=== PATIENT | female | born 1990 | race Two or more races ===

== ENCOUNTER 2024-05-01 07:56 | Inpatient (IN) | payer MEDICAID, OTHER ==
[~2024-05-01] VITALS: Ht 154.9 cm; Wt 139.0 kg
--- NOTE | 2024-05-01 08:32 | ED.PDOC ---
History of Present Illness HPI Comments 33-year-old female presents with a chief complaint of cough x 4 days with associated chest congestion. Patient states that she has chest congestion for the past x 4 days and has been coughing a lot. Patient mentions that she has been taking Robitussin, but has not had any relief of symptoms. Patient mentions that her son was sick and then she now has similar symptoms. No other symptoms or modifying factors present at this time. Chief Complaint: Cough Time Seen by MD: 08:27 Primary Care Provider: CHRISTIANO Tejada Notes: Medications, Allergies Allergies: Coded Allergies: NO KNOWN ALLERGIES (Unverified , 05/01/24) Information Source: Patient Mode of Arrival: Ambulatory Severity: Moderate Timing: Days Duration: Since onset Prehospital treatment: None Past Medical History PAST MEDICAL HISTORY: CHF, Gallstones, High Lipids, HTN Surgical History: PRINCIPAL CONSULTANT History: No Pertinent PRINCIPAL CONSULTANT History Family History Family History: Family hx of DM, Family hx of heart minerva, Family hx of HTN Social History Smoker: Non-Smoker Alcohol: Denies ETOH Use Drugs: Denies Drug Use Lives In: Home Constitutional: denies: chills, diaphoresis, fatigue, fever, malaise, sweats, weakness, others EENTM: reports: nose congestion; denies: blurred vision, double vision, ear bleeding, ear discharge, ear drainage, ear pain, ear ringing, eye pain, eye redness, hearing loss, mouth pain, mouth swelling, nasal discharge, nose bleeding, nose pain, photophobia, tearing, throat pain, throat swelling, voice changes, others Respiratory: reports: cough; denies: hemoptysis, orthopnea, SOB at rest, shortness of breath, SOB with excertion, stridor, wheezing, others Cardiovascular: denies: chest pain, dizzy spells, diaphoresis, Dyspnea on exertion, edema, irregular heart beat, left arm pain, lightheadedness, palpitations, PND, syncope, others Gastrointestinal: denies: abdomen distended, abdominal pain, blood streaked bowels, constipated, diarrhea, dysphagia, difficulty swallowing, hematemesis, melena, nausea, poor appetite, poor fluid intake, rectal bleeding, rectal pain, vomiting, others Genitourinary: denies: abnormal vagina bleeding, burning, dyspareunia, dysuria, flank pain, frequency, hematuria, incontinence, pain, , vagina discharge, urgency, others Neurological: denies: dizziness, fainting, headache, left sided numbness, left sided weakness, numbness, paresthesia, pre-existing deficit, right sided numbness, right sided weakness, seizure, speech problems, tingling, tremors, weakness, others Musculoskeletal: denies: back pain, gout, joint pain, joint swelling, muscle pa in, muscle stiffness, neck pain, others Integumetry: denies: bruises, change in color, change in hair/nails, dryness, laceration, lesions, lumps, rash, wounds, others Allergic/Immunocompromised: denies: Difficulty Healing, Frequent Infections, Hives, Itching, others Hematologic/Lymphatic: denies: anemia, blood clots, easy bleeding, easy bruising, swollen glands, others Endocrine: denies: excessive hunger, excessive sweating, excessive thirst, excessive urination, flushing, intolerance to cold, intolerance to heat, unexplained weight gain, unexplained weight loss, others Psychiatric: denies: anxiety, bipolar disorder, depression, hopeless, panic disorder, schizophrenia, sleepless, suicidal, others All Other Systems: Reviewed and Negative Physical Exam General Appearance: No Apparent Distress, Normal HEENT: Normal ENT Inspection, Pharynx Normal, TMs Normal Neck: Full Range of Motion, Non-Tender, Normal, Normal Inspection Respiratory: Chest Non-Tender, Lungs Clear, No Accessory Muscle Use, No Respiratory Distress, Normal Breath Sounds Cardiovascular: No Edema, No JVD, No Murmur, No Gallop, Normal Peripheral Pulses, Regular Rate/Rhythm Breast Exam: Deferred Gastrointestinal: No Organomegaly, Non Tender, No Pulsatile Mass, Normal Bowel Sounds, Soft Genitalia: Deferred Pelvic: Deferred Rectal: Deferred Extremities: No calf tenderness, Normal capillary refill, Normal inspection, Normal range of motion, Non-tender, No pedal edema Musculoskeletal : Apperance: Normal Neurologic: Alert, hedge fund manager II-XII nml as Tested, No Motor Deficits, Normal Affect, Normal Mood, No Sensory Deficits Cerebellar Function: Normal Reflexes: Normal Skin: Dry, Normal Color, Warm Lymphatic: No Adenopathy Was a procedure done? Was a procedure done?: No Differential Dx Considerations may include: Hypertensive emergency, acute CHF exacerbation, pneumonia, viral syndrome X-Ray, Labs, Meds, VS Vital Signs Date Time Temp Pulse Resp B/P (MAP) Pulse Ox O2 Delivery O2 Flow Rate FiO2 05/01/24 11:18 80 20 98 Nasal Cannula* 2 28 05/01/24 11:07 98.2 84 22 198/103 (134) 90 98.2 05/01/24 09:34 84 05/01/24 08:14 98.2 104 18 236/120 (158) 92 Lab Test 05/01/24 10:23 05/01/24 09:30 Range/Units Troponin I High Sensitivity 29 31 </=34 ng/L White Blood Count 10.4 4.4-10.8 10^3/uL Red Blood Count 4.22 4.0-5.20 10^6/uL Hemoglobin 10.8 L 12.2-16.2 g/dL Hematocrit 33.0 L 36.0-46.0 % Mean Corpuscular Volume 78.3 L 80.0-100.0 fL Mean Corpuscular Hemoglobin 25.5 L 28.0-32.0 pg Mean Corpuscular Hemoglobin Concent 32.6 32.0-36.0 g/dL Red Cell Distribution Width 19.4 H 11.8-14.3 % Platelet Count 252 140-450 10^3/uL Mean Platelet Volume 7.6 6.9-10.8 fL Neutrophils (%) (Auto) 77.0 37.0-80.0 % Lymphocytes (%) (Auto) 12.1 10.0-50.0 % Monocytes (%) (Auto) 6.2 0.0-12.0 % Eosinophils (%) (Auto) 3.7 0.0-7.0 % Basophils (%) (Auto) 1.0 0.0-2.0 % Neutrophils # (Auto) 8.0 1.6-8.6 10 ^3/uL Lymphocytes # (Auto) 1.3 0.4-5.4 10 ^3/uL Monocytes # (Auto) 0.6 0-1.3 10 ^3/uL Eosinophils # (Auto) 0.4 0-0.8 10 ^3/uL Basophils # (Auto) 0.1 0-0.2 10 ^3/uL Nucleated Red Blood Cells 0.1 % Sodium Level 138 136-145 mmol/L Potassium Level 3.7 3.5-5.1 mmol/L Chloride Level 104 98-107 mmol/L Carbon Dioxide Level 28 20-31 mmol/L Anion Gap 6 5-15 Blood Urea Nitrogen 18 9-23 mg/dL Creatinine 1.53 H 0.550-1.02 mg/dL Glomerular Filtration Rate Calc 45 >90 mL/min BUN/Creatinine Ratio 11.8 10.0-20.0 Serum Glucose 118 H 74-106 mg/dL Calcium Level 9.3 8.7-10.4 mg/dL B-Type Natriuretic Peptide 213.58 0-100 pg/mL Time of 1ST Reevaluation: 08:57 Reevaluation 1ST: Unchanged Patient Education/Counseling: Diagnosis, Treatment, Prognosis Family Education/Counseling: No Family Present Departure 1 Departure Time of Disposition: 11:27 (Patient presented with hypertension and symptoms concerning for hypertensive emergency. Patient is receiving iv blood pressure medications requiring intensive monitoring. Data: 1. I ordered and reviewed the result of at least 3 labs including a CBC, BMP, and Urinalysis. 2. I independe ntly interpreted the following tests: CT Brain: Which appears benign. EKG which is Normal Sinus RhythmRisk:This patient has a high risk of morbidity due to further diagnostic testing or treatment and may suffer from an acute cardiac disorder. Workup reveals hypertensive emergency and patient should be admitted for further workup. and possible expert consultation. ) Impression: Primary Impression: Hypertensive emergency Additional Impressions: Hypoxia Cough Qualified Codes: R05.1 - Acute cough Disposition: 09 ADMITTED INPATIENT Admit to: Med Surg Condition: Serious Critical Care Note Critical Care Time?: Yes Critical care comment: Hypertensive emergency Authorized and Performed by: Farzaneh Matamoros MD Total critical care time: Approximately 33 minutes Due to a high probability of clinically significant, life threatening deterioration, the patient required my highest level of preparedness to intervene emergently and I personally spent this critical care time directly and personally managing the patient. This critical care time included obtaining a history; examining the patient; pulse oximetry; ordering and review of studies; arranging urgent treatment with development of a management plan; evaluation of patient's response to treatment; frequent reassessment; and, discussions with other providers. This critical care time was performed to assess and manage the high probability of imminent, life-threatening deterioration that could result in multi-organ failure. It was exclusive of separately billable procedures and treating other patients and teaching time. Please see my other sections and the rest of the note for further information on patient assessment and treatment. Stability Stability form required: No I personally scribed for FARZANEH MAATMOROS MD ([email or web address]) on 05/01/24 at 08:32. Electronically submitted by Vickey Vizcarra ([email or web address]). FARZANEH MATAMOROS MD May 01, 2024 08:32
--- NOTE | 2024-05-01 09:03 | DVH ---
XY CHEST TWO VIEWS ROUTINE CLINICAL HISTORY: cough COMPARISON: None TECHNIQUE: Frontal and lateral view of the chest was obtained FINDINGS: Lines and Tubes: None Lungs: Bilateral interstitial prominence. No focal pulmonary consolidation. Pleura: No effusion. No pneumothorax. Cardiomediastinal contours: Unremarkable Bones: No acute osseous abnormality. IMPRESSION: 1. Interstitial pulmonary edema.
[2024-05-01 09:51] LABS: Basophils # (auto) 0.1 10 ^3/uL (0-0.2); Eosinophils # (auto) 0.4 10 ^3/uL (0-0.8); Eosinophils % (auto) 3.7 % (0.0-7.0); Hemoglobin 10.8 g/dL (12.2-16.2); Lymphocytes # (auto) 1.3 10 ^3/uL (0.4-5.4); Lymphocytes % (auto) 12.1 % (10.0-50.0); Mean Corpuscular Hemoglobin 25.5 pg (28.0-32.0); Mean Corpuscular Hgb Conc. 32.6 g/dL (32.0-36.0); Mean Corpuscular Volume 78.3 fL (80.0-100.0); Monocytes # (auto) 0.6 10 ^3/uL (0-1.3); Monocytes % (auto) 6.2 % (0.0-12.0); Nucleated Red Blood Cells % 0.1 %; Platelet Count (auto) 252 10^3/uL (140-450); Red Blood Cells 4.22 10^6/uL (4.0-5.20); Red Cell Distribution Width 19.4 % (11.8-14.3); White Blood Cell 10.4 10^3/uL (4.4-10.8)
[2024-05-01 09:57] LABS: Chloride 104 mmol/L (98-107); Potassium 3.7 mmol/L (3.5-5.1); Sodium 138 mmol/L (136-145)
[2024-05-01 09:58] LABS: Anion Gap 6 (5-15); Carbon Dioxide 28 mmol/L (20-31)
[2024-05-01 09:59] LABS: Calcium 9.3 mg/dL (8.7-10.4)
[2024-05-01 10:03] LABS: BUN/Creatinine Ratio 11.8 (10.0-20.0); Blood Urea Nitrogen 18 mg/dL (9-23); Glucose 118 mg/dL (74-106)
[2024-05-01 11:18] VITALS: PULSE 80; RESP 20; O2SAT 98
[2024-05-01] MEDS ORDERED: ONDANSETRON HCL 4 MG/2 ML VIAL IV PRN (11:45)
[2024-05-01] MEDS ORDERED: DOCUSATE SOD 100 MG CAP PO PRN (11:45)
[2024-05-01] MEDS ORDERED: HYDROcodone-ACET 5/325MG TAB PO PRN (11:45)
[2024-05-01] MEDS: hydrALAZINE HCL 20 MG/ML VL IV ONE (12:03)
--- NOTE | 2024-05-01 12:47 | DVHHP2 ---
History of Present Illness Reason for Visit: Acute respiratory distress History of Present Illness The patient is a 33-year-old female with past medical history of gallstones, CHF, hyperlipidemia, and hypertension who presented to [facility] ED with complaint cough for the past 4 days. Patient reports symptoms progressively get worse with chest congestion shortness of breaths, persistent cough, getting worse today that prompted this visit. Patient was seen and evaluated in the ED, laboratory data shows WBC 10.4, hemoglobin 10.8, hematocrit 33.0, platelets 252, sodium 138, potassium 3.7, BUN 18, creatinine 1.53, glucose 118, troponin 29, BNP 213.58, blood pressure 236/120 trending down to 182/99, heart rate 84, temperature 98.2 F, O2 saturation 97% on oxygen. Chest x-ray revealing interstitial pulmonary edema. Patient was started on IV Lasix, please see medication orders section in the computer. On my assessment, patient denied chest pain, no headache, no dizziness, no diaphoresis, currently on oxygen, no nausea, no vomiting, no fever, no chills. Patient was admitted for further evaluation medical management. Past Medical History CHF, Gallstones, High Lipids, HTN Past Surgical History Family History Reviewed, noncontributory to the management of this case. Past Social History The patient lives at home, denies smoking, alcohol or illicit drugs abuse. Review of Systems Constitutional: Yes: Weakness; No: Fever, Chills, Sweats, Malaise, Other Eyes: No: Pain, Vision change, Conjunctivae inflammation, Eyelid inflammation, Other, Redness ENT: No: Ear pain, Ear discharge, Nose pain, Nose discharge, Nose congestion, Mouth pain, Mouth swelling, Throat pain, Throat swelling, Other Respiratory: Cough, Shortness of breath; No: Dry, SOB with excertion, Wheezing, Hemoptysis, Pleuritic Pain, Sputum, Wheezing, Other Cardiovascular: No: Chest Pain, Palpitations, Orthopnea, Paroxysmal Noc. Dyspnea, Edema, Lt Headedness, Other Gastrointestinal: No: Nausea, Vomiting, Abdominal Pain, Diarrhea, Constipation, Melena, Hematochezia, Other Genitourinary: No Dysuria, No Frequency, No Incontinence, No Hematuria, No Retention, No Other Musculoskeletal: No: other, neck pain, shoulder pain, arm pain, back pain, hand pain, leg pain, foot pain Skin: No: Rash, Lesions, Jaundice, Bruising, Other Neurological: No: Weakness, Numbness, Incoordination, Change in speech, Confu byron, Seizures, Other Allergies: Coded Allergies: NO KNOWN ALLERGIES (Unverified , 05/01/24) Medications Current Medications Medications Dose Ordered Sig/Juan Route Start Time Stop Time Status Last Admin Dose Admin Furosemide 40 mg DAILY IV 05/02/24 10:00 UNV Hydralazine HCl 10 mg Q6HP PRN IV 05/01/24 11:45 UNV Amlodipine Besylate 5 mg DAILY PO 05/02/24 10:00 UNV Metoprolol Tartrate 50 mg BID PO 05/01/24 22:00 UNV Sodium Chloride 10 ml Q8HR IV 05/01/24 14:00 UNV Acetaminophen/ Hydrocodone Bitart 1 tab Q4HP PRN PO 05/01/24 11:45 UNV Ondansetron HCl 4 mg Q4HP PRN IV 05/01/24 11:45 UNV Docusate Sodium 100 mg BIDPRN PRN PO 05/01/24 11:45 UNV Acetaminophen 650 mg Q6HP PRN PO 05/01/24 11:45 UNV Exam Vital Signs Vital Signs Date Time Temp Pulse Resp B/P (MAP) Pulse Ox O2 Delivery O2 Flow Rate FiO2 05/01/24 12:24 83 05/01/24 12:03 182/99 05/01/24 11:18 20 98 Nasal Cannula* 2 28 05/01/24 11:07 98.2 98.2 General Appearance: Alert, Oriented X3, Cooperative, No acute distress HEENT: Atraumatic, PERRLA, EOMI, Mucous membr. moist/pink Respiratory: Normal air movement, Other (Diminished breath sounds) Cardiovascular: Regular rate, Normal S1, Normal S2, No murmurs Abdominal: Normal bowel sounds, Soft, No tenderness, No hepatospenomegaly, No masses Extremities: No clubbing, No cyanosis, No edema, Normal pulses, No tenderness/swelling Skin: No rashes, No breakdown, No significant lesion Neuro: Normal gait, Normal speech, Strength at 5/5 X4 ext, Normal tone, Sensation intact, Cranial nerves 3-12 NL, Reflexes 2+ Psych/Mental Status: Mental status NL, Mood NL Labs/Xrays Labs Test 05/01/24 12:15 05/01/24 09:30 Range/Units White Blood Count 10.4 4.4-10.8 10^3/uL Red Blood Count 4.22 4.0-5.20 10^6/uL Hemoglobin 10.8 L 12.2-16.2 g/dL Hematocrit 33.0 L 36.0-46.0 % Mean Corpuscular Volume 78.3 L 80.0-100.0 fL Mean Corpuscular Hemoglobin 25.5 L 28.0-32.0 pg Mean Corpuscular Hemoglobin Concent 32.6 32.0-36.0 g/dL Red Cell Distribution Width 19.4 H 11.8-14.3 % Platelet Count 252 140-450 10^3/uL Mean Platelet Volume 7.6 6.9-10.8 fL Neutrophils (%) (Auto) 77.0 37.0-80.0 % Lymphocytes (%) (Auto) 12.1 10.0-50.0 % Monocytes (%) (Auto) 6.2 0.0-12.0 % Eosinophils (%) (Auto) 3.7 0.0-7.0 % Basophils (%) (Auto) 1.0 0.0-2.0 % Neutrophils # (Auto) 8.0 1.6-8.6 10 ^3/uL Lymphocytes # (Auto) 1.3 0.4-5.4 10 ^3/uL Monocytes # (Auto) 0.6 0-1.3 10 ^3/uL Eosinophils # (Auto) 0.4 0-0.8 10 ^3/uL Basophils # (Auto) 0.1 0-0.2 10 ^3/uL Nucleated Red Blood Cells 0.1 % Sodium Level 138 136-145 mmol/L Potassium Level 3.7 3.5-5.1 mmol/L Chloride Level 104 98-107 mmol/L Carbon Dioxide Level 28 20-31 mmol/L Anion Gap 6 5-15 Blood Urea Nitrogen 18 9-23 mg/dL Creatinine 1.53 H 0.550-1.02 mg/dL Glomerular Filtration Rate Calc 45 >90 mL/min BUN/Creatinine Ratio 11.8 10.0-20.0 Serum Glucose 118 H 74-106 mg/dL Calcium Level 9.3 8.7-10.4 mg/dL B-Type Natriuretic Peptide 213.58 0-100 pg/mL PATIENT: SEAN YOUNGBLOOD ACCT: [id number] UNIT: [id number] : 1990 LOC: ER ROOM / BED: / AGE / SEX: 33 / F ADM STATUS: REG ER SERVICE [id number] ORDERING PHYSICIAN: FARZANEH MATAMOROS MD PROCEDURE(s): CXR2 - CHEST TWO VIEWS ROUTINE REASON: cough ORDER NUMBER(s): [id number], ACCESSION NUMBER(s): [id number] XY CHEST TWO VIEWS ROUTINE CLINICAL HISTORY: cough COMPARISON: None TECHNIQUE: Frontal and lateral view of the chest was obtained FINDINGS: Lines and Tubes: None Lungs: Bilateral interstitial prominence. No focal pulmonary consolidation. Pleura: No effusion. No pneumothorax. Cardiomediastinal contours: Unremarkable Bones: No acute osseous abnormality. IMPRESSION: 1. Interstitial pulmonary edema. Assessment/Plan Assessment/Plan Hypertensive emergency Acute cough Pulmonary edema Acute renal injury Acute respiratory failure with hypoxia Acute exacerbation of congestive heart failure Plan 1. Admit to telemetry unit 2. Breathing treatment 3. Pain control management 4. Management of fluids and electrolytes 5. Consultation for pulmonology 6. Diagnostic tests chest x-ray 7. DVT prophylaxis-on SCDs 8. Repeat labs CBC, CMP in a.m. 9. Continue with current medical management 10. Treatment plan discussed with patient and RN. Patient verbalized understanding. Plan discussed with: Patient, Other (RN) My Orders Orders - OLVIN COCHRAN DNP Procedure Category Date Status Time Furosemide Injection PHA 05/01/24 Logged (Lasix Injection) 11:45 Furosemide Injection PHA 05/02/24 Logged (Lasix Injection) 10:00 Hydralazine Injection PHA 05/01/24 Logged (Apresoline Inject 11:45 Amlodipine Tablet PHA 05/02/24 Logged (Norvasc Tablet) 10:00 Metoprolol Tartrate PHA 05/01/24 Logged Tablet (Lopressor Ta 22:00 Allergies SIRIA 05/01/24 In Process 11:35 Code Status CODE 05/01/24 Transmitted 11:35 Sodium Chloride Lock PHA 05/01/24 Logged (Saline Lock Ns) 14:00 Oxygen Per Hour RT 05/01/24 Transmitted 11:35 Hydrocodone-Acet PHA 05/01/24 Logged 5/325mg Tab ([place] 11:45 Ondansetron Hcl PHA 05/01/24 Logged (Zofran) 11:45 Docusate Sodium PHA 05/01/24 Logged Capsule (Colace 11:45 Complete Blood Count LAB 05/02/24 Verified 04:00 Comprehensive LAB 05/02/24 Verified Metabolic Panel 04:00 Cardiac DIET 05/01/24 Transmitted Diet-2gna,Lofat,Lochol Lunch Condition: Serious SIRIA 05/01/24 In Process 11:35 Acetaminophen Tablet PHA 05/01/24 Logged (Tylenol Tablet) 11:45 Bedrest With Bathroom SIRIA 05/01/24 In Process Privileg 11:35 Sequential SIRIA 05/01/24 In Process Compression Device Problem List: (1) Hypertensive emergency (2) Acute cough (3) Pulmonary edema (4) Acute renal injury (5) Acute respiratory failure with hypoxia (6) Acute exacerbation of congestive heart failure Date of Service: May 01, 2024 Billing Provider: OLVIN COCHRAN DNP Common Visit Codes: [id number] INP/OBS CARE (HIGH) OLVIN COCHRAN DNP May 01, 2024 12:47
[2024-05-01] MEDS ORDERED: MORPHINE SULFATE INJ 2 MG/ml SYRG IV PRN (13:00)
[2024-05-01] MEDS ORDERED: NITROGLYCERIN 0.4 MG SL TAB SL PRN (13:00)
[2024-05-01] MEDS: NITROGLYCERIN 0.4 MG SL TAB SL ONE (13:24)
[2024-05-01] MEDS: FUROSEMIDE 40 MG/4 ML VIAL IV ONE (13:27)
[2024-05-01] MEDS ORDERED: ALBUTEROL SULF 2.5 MG/0.5ML(0.5%) NEB SOLN NEB PRN (13:30)
[2024-05-01] MEDS ORDERED: IPRATROPIUM BROM 0.5 MG/2.5ML INH SOL NEB PRN (13:30)
[2024-05-01 14:25] VITALS: BP 173/93; PULSE 84; RESP 18; TEMP 98.2; O2SAT 98
[2024-05-01 14:28] VITALS: O2SAT 98
[2024-05-01] MEDS: SODIUM CHLOR 0.9% PF (SALINE LOCK) 10ML VIAL/SYR IV SCH (14:29)
--- NOTE | 2024-05-01 14:32 | ECG ---
[facility] Test Date: 2024-05-01 Test Time: 09:34:37 Pat Name: SEAN YOUNGBLOOD Department: er Room: 0295T Gender: F [employer]: miguel angel : 1990 Requested By: FARZANEH MATAMOROS Order Number: [id number] Reading MD: Nguyễn Norman Measurements Intervals [place] Rate: 84 P: 0 ME: 179 QRS: -5 QRSD: 103 T: 76 QT: 433 QTc: 512 Interpretive Statements Sinus rhythm Left atrial enlargement RSR' in V1 or V2, right VCD or RVH Prolonged QT interval Electronically Signed On 05-02-2024 8:27:32 PST by Nguyễn Norman Please click the below link to view image of tracing.
--- NOTE | 2024-05-01 14:45 | ECG ---
[facility] Test Date: 2024-05-01 Test Time: 12:24:58 Pat Name: SEAN YOUNGBLOOD Department: ER Room: 0295T Gender: F Family Consultant: DR HCILEL: 1990 Requested By: FARZANEH MATAMOROS Order Number: [id number] Reading MD: Nguyễn Norman Measurements Intervals [place] Rate: 83 P: 9 OK: 169 QRS: -17 QRSD: 113 T: 82 QT: 449 QTc: 528 Interpretive Statements Sinus rhythm Probable left atrial enlargement Incomplete right bundle branch block Left ventricular hypertrophy Prolonged QT interval Electronically Signed On 05-02-2024 8:27:46 PST by Nguyễn Norman Please click the below link to view image of tracing.
[2024-05-01 18:10] VITALS: O2SAT 98
[2024-05-01 20:00] VITALS: PULSE 83; RESP 22; O2SAT 96
[2024-05-01] MEDS: METOPROLOL TARTRATE 50 MG TAB PO SCH (22:00)
[2024-05-01 22:34] VITALS: BP 136/83; PULSE 86; RESP 20; TEMP 98.2; O2SAT 98
[2024-05-02] VITALS (11 sets, daily range): BP systolic 154–187; BP diastolic 81–105; PULSE 68–94; RESP 16–20; TEMP 98–99; O2SAT 90–99
[2024-05-02 05:33] LABS: Basophils # (auto) 0.1 10 ^3/uL (0-0.2); Eosinophils # (auto) 0.5 10 ^3/uL (0-0.8); Hemoglobin 10.6 g/dL (12.2-16.2); Mean Corpuscular Hemoglobin 25.6 pg (28.0-32.0); Monocytes # (auto) 0.6 10 ^3/uL (0-1.3); Nucleated Red Blood Cells % 0.1 %
[2024-05-02] MEDS: ACETAMINOPHEN 325 MG TAB PO PRN (05:36)
[2024-05-02 05:37] LABS: Basophils % (auto) 0.7 % (0.0-2.0); Eosinophils % (auto) 4.4 % (0.0-7.0); Hematocrit 32.2 % (36.0-46.0); Lymphocytes # (auto) 1.3 10 ^3/uL (0.4-5.4); Lymphocytes % (auto) 12.1 % (10.0-50.0); Mean Corpuscular Volume 77.7 fL (80.0-100.0); Monocytes % (auto) 5.8 % (0.0-12.0); Platelet Count (auto) 288 10^3/uL (140-450); Red Blood Cells 4.15 10^6/uL (4.0-5.20); Red Cell Distribution Width 19.2 % (11.8-14.3); White Blood Cell 10.4 10^3/uL (4.4-10.8)
[2024-05-02 05:59] LABS: Alanine Aminotransferase 23 U/L (7-40); Albumin 3.7 g/dL (3.2-4.8); Alkaline Phosphatase 65 U/L (46-116); Anion Gap 8 (5-15); Aspartate Aminotransferase 19 U/L (13-40); Blood Urea Nitrogen 23 mg/dL (9-23); Calcium 9.5 mg/dL (8.7-10.4); Carbon Dioxide 28 mmol/L (20-31); Chloride 104 mmol/L (98-107); Glucose 125 mg/dL (74-106); Potassium 3.5 mmol/L (3.5-5.1); Sodium 140 mmol/L (136-145)
[2024-05-02 06:00] LABS: Bilirubin, Total 0.5 mg/dL (0.2-1.0); Total Protein 6.6 g/dL (5.7-8.2)
[2024-05-02] MEDS: FUROSEMIDE 40 MG/4 ML VIAL IV SCH (09:45)
[2024-05-02] MEDS ORDERED: amLODIPine BESYLATE 5 MG TAB PO SCH (10:00)
[2024-05-02] MEDS: CARVEDILOL 12.5 MG TAB PO SCH (10:13)
--- NOTE | 2024-05-02 10:33 | DVHPNRES ---
Progress Note Date Seen: May 02, 2024 Resident Creating Document: JOSEDARCYSHMUEL RESIDENT Medical Necessity Reason Pt with a Central, PICC or Fol: No Subjective Review of Systems Patient is a 33-year-old female with a past medical history of congestive heart failure, hyperlipidemia, gallstones, hypertension came to the ED with a chief complaint of cough and shortness of breath for 3-4 days before admission. Patient reported that her son got sick with cough and congestion about a week ago following which she started having congestion and cough which was initially dry and then he started having whitish sputum which turned greenish white later. Patient denied fever, chills, rigors, headache, dizziness, altered level of consciousness. Patient reports at home she uses 2 L/minute oxygen for the past 2 years after she was diagnosed with congestive heart failure. Patient reports orthopnea and history of LOPEZ. Patient's blood pressure on arrival was elevated at 236/120 mmHg, and tachycardia. Past medical history: As per HPI Past Surgical history: History of X 2 Social history: Patient denies smoking, alcohol, drug use Home medications: Carvedilol 12.5 mg b.i.d., furosemide 20 mg b.i.d., spironolactone 50 mg b.i.d., losartan 100 mg once daily, nifedipine 60 mg once daily Review of systems Patient seen and examined at the bedside. Patient is alert and oriented to time, place and person. Patient's blood pressure at the time of examination 163/105 mmHg. Patient was saturating 95% on 2 L oxygen per minute and did not report of shortness of breath. Cough with mild sputum whitish in color. No hemoptysis. Chest x-ray showed pulmonary vascular congestion and interstitial edema. No fever, chills, rigors. Objective vital signs Vital Sign Date Time Temp Pulse Resp B/P (MAP) Pulse Ox O2 Delivery O2 Flow Rate FiO2 05/02/24 10:13 84 163/102 05/02/24 07:04 98 Nasal Cannula 2.0 05/02/24 07:04 28 05/02/24 05:00 99.0 20 99.0 Total Intake and Output 05/01/24 05/01/24 05/02/24 15:00 23:00 07:00 Intake Total 0 ml Balance 0 ml medications Current Medications Medications Dose Ordered Sig/Juan Route Start Time Stop Time Status Last Admin Dose Admin Furosemide 40 mg DAILY IV 05/02/24 10:00 05/02/24 09:45 40 MG Hydralazine HCl 10 mg Q6HP PRN IV 05/01/24 11:45 Sodium Chloride 10 ml Q8HR IV 05/01/24 14:00 05/02/24 05:37 10 ML Acetaminophen/ Hydrocodone Bitart 1 tab Q4HP PRN PO 05/01/24 11:45 Ondansetron HCl 4 mg Q4HP PRN IV 05/01/24 11:45 Docusate Sodium 100 mg BIDPRN PRN PO 05/01/24 11:45 Acetaminophen 650 mg Q6HP PRN PO 05/01/24 11:45 05/02/24 05:36 650 MG Nitroglycerin 0.4 mg Q5MINP PRN SL 05/01/24 13:00 Morphine Sulfate 2 mg Q30M PRN IV 05/01/24 13:00 Albuterol 2.5 mg Q4HPRN PRN NEB 05/01/24 13:30 Ipratropium [place] 0.5 mg Q4HPRN PRN NEB 05/01/24 13:30 Carvedilol 12.5 mg Q12HR PO 05/02/24 10:00 05/02/24 10:13 12.5 MG Examination Physical Examination Gen - no pallor, no icterus, no cyanosis, no clubbing, no LAD, 1+ pedal edema . Skin - Patients skin is warm and dry. HEENT - normocephalic, atraumatic, moist mucous membranes. Neck - full ROM, no LAD, no JVD. Pulmonary - B/L vesicular breath sounds. no crackles , no wheezing, no stridor. cardiovascular - normal S1,S2 heard. No S3 heard. no murmurs heard. peripheral pulses normal radial 2+, pedal 2+. capillary refill normal <2 secs. GI - soft abdomen without tenderness to palpation. no hepatospleenomegaly. Bowel sounds + Neurological - Patient is A/O X 3 . Bilateral upper extremity strength 5/5, bilateral lower extremity strength 5/5, no facial droop, normal speech, no tremor, no sensory deficiets. laboratory and microbiology Laboratory Tests 05/02/24 04:44 Test 05/02/24 04:44 Range/Units Serum Glucose 125 H 74-106 mg/dL Problem List/Assessment/Plan Problem List/Assessment/Plan Assessment and plan # Acute Hypoxic respiratory failure likely d/t exacerbation of HFpEF # Acute exacerbation of heart failure with preserved ejection fraction - Echocardiogram shows LVEF 50%, mild concentric left ventricular hypertrophy. Slightly reduced right ventricular systolic pressure 30 mmHg. - On IV furosemide 40mg - On 2l O2 via nasal cannula - Continued on Carvedilol - strict Input and Output # Acute bronchitis likely viral in etiology # ? B/L lower lung lobe atelectasis - respiratory culture pending - Covid 19 and influenza A&B negative - On albuterol and ipratropium nebulisers as needed - On O2 support # JEREMI on CKD likely hemodynamically mediated d/t worsened heart failure - Urine sodium , urine protein, urine creatinine ratio pending - patient is on lasix 40mg IV - Held Losartan and spironolactone # Hypertensive emergency - on admission BP >200/120 - patient is currently on carvedilol and nifedipine - target systolic blood pressure < 150mmhg # Microcytic hypochromic anemia - Hemoglobin stable around 10.6mg/dl - elevated RDW - Iron studies pending # Morbid obesity BMI-58 - patient counselled on lifestyle modification for more than 15 mins. Goals of care discussed with the patient for over 35 minutes. Full code Plan discussed with Dr. Michael Plan discussed with: Patient My Orders My Orders Orders - HANY GARCIA Procedure Category Date Status Time Carvedilol Tablet PHA 05/02/24 In Process (Coreg Tablet) 10:00 Respiratory Culture LYNN 05/02/24 Uncollected W/ Gs 09:17 Echo 2d Mode Cardiac US 05/02/24 Taken DOP 09:17 Covid19 Antigen [facility] 05/02/24 Logged Rapid Influenza A&B LAB 05/02/24 Logged 09:26 Urinalysis LAB 05/02/24 Logged 09:26 Drug Screen LAB 05/02/24 Logged 09:26 Date of Service: May 02, 2024 Billing Provider: JOSE EDWARDS MD Common Visit Codes: [id number] INP/OBS CARE(HIGH) HANY GARCIA RESIDENT May 02, 2024 10:33 JOSE EDWARDS MD May 08, 2024 00:14
--- NOTE | 2024-05-02 11:20 | DVHSR ---
APPROVED REPORT EXAM: Two-dimensional and M-mode echocardiogram with Doppler and color Doppler. Blood Pressure: 163/102 mmHg INDICATION Dyspnea RISK FACTORS Obesity: Height: 5'1, Weight: 310 DIMENSIONS LVDd4.9 (3.8-5.7cm)LA (2D)4.5 (1.9-4.0cm)Aortic Root3.0 (2.0-3.7cm) LVDs3.5 (2.5-4.0cm)LA (MM) (1.9-4.0cm)Aortic Cusp Exc1.5 (1.5-2.0cm) EF (%) 50.0 (55-70%)Rt. Atrium4.1 (1.9-4.0cm)Asc. Aorta2.8 cm IVSd1.9 (0.7-1.1cm)RV (D) (1.8-2.4cm) PWd2.2 (0.7-1.1cm) Mitral Valve MitralMitral Stenosis E wave1.35m/sMV Mean GR.mmHg A wave0.91m/sMV Peak GR.164mmHg E/A ratio1.52D MVAcm2 DECEL [id number] 1/2 [place] Aortic Valve Aortic ValveAortic Stenosis V11.31m/[place] Mean GR.11mmHg V22.11m/[place] Peak GR.18mmHg LVOT Diameter1.9 (1.8-2.4cm)Doppler AVA1.76cm2 Pulmonic Valve V21.29m/s Tricuspid Valve TR Velocity2.36m/s [id number] Conclusion Normal left ventricular size and dimension. Normal left ventricular systolic function estimated ejec tion fraction is 50%. There is mild concentric left ventricular hypertrophy. There is normal diasto lic function. Normal right ventricular size and dimension. Normal right ventricular systolic function. Slightly i ncreased right ventricular systolic 30. Moderately dilated atrium. Mildly dilated right atrium. The aortic Valve is thickened no significant stenosis or regurgitation. There is severe mitral vegetation with a possible prolapse of the posterior leaflet. There is [id number] tricuspid valve regurgitation. Pulmonary valve is grossly normal. No pericardial effusion. Normal
[2024-05-02] MEDS: hydrALAZINE HCL 20 MG/ML VL IV PRN ×2 (15:30→22:25)
[2024-05-02 17:26] LABS: Rapid Influenza A Negative (Negative); Rapid Influenza B Negative (Negative)
[2024-05-02 17:27] LABS: COVID19 ANTIGEN SOFIA FIA NEGATIVE (NEGATIVE)
[2024-05-02] MEDS: NIFEdipine ER 30 MG TAB PO ONE (17:51)
--- NOTE | 2024-05-02 18:38 | DVHINCON2 ---
Date of service: May 01, 2024 Referring Physician SMITH Stapleton Reason for Consultation Acute hypoxic respiratory failure, acute exacerbation of asthma History of Present Illness 33-year-old woman history of cholelithiasis, CHF, hyperlipidemia, hypertension who presented with a chief complaint of cough for the last four days. Her symptoms progressively worsened and included shortness of breath and chest congestion. This prompted her ED visit. In the emergency department she was found to have interstitial pulmonary edema on chest x-ray. She was initiated on diuretics. Pulmonary consultation is called due to acute hypoxic respiratory failure and persistent cough. Review of systems: 14 point review of systems is negative unless otherwise noted above. Past medical history: Cholelithiasis, CHF, hyperlipidemia, hypertension, morbid obesity BMI Past surgical history: Medications: Reviewed Allergies: No known drug allergies. Family history: No family history of premature CAD. No family history of lung disease. Social history: Nonsmoker. No alcohol or illicit drug use. Lives at home. Family History: Patient reports no known family medical history. Allergies: Coded Allergies: NO KNOWN ALLERGIES (Unverified , 05/01/24) Home Meds Unable to Obtain Active Prescriptions or Reported Meds Current Medications Current Medications Medications (Trade) Dose Ordered Sig/Juan Route PRN Reason Start Time Stop Time Status Last Admin Furosemide (Lasix Injection) 40 mg DAILY IV 05/02/24 10:00 05/02/24 09:45 Amlodipine Besylate (Norvasc Tablet) 5 mg DAILY PO 05/02/24 10:00 05/02/24 09:17 DC Metoprolol Tartrate (Lopressor Tablet) 50 mg BID PO 05/01/24 22:00 05/02/24 09:17 DC 05/01/24 22:00 Carvedilol (Coreg Tablet) 12.5 mg Q12HR PO 05/02/24 10:00 05/02/24 10:13 Hydralazine HCl (Apresoline Injection) 10 mg Q6HP PRN IV SBP>170 05/02/24 18:15 UNV Vital Signs Vital Signs Date Time Temp Pulse Resp B/P (MAP) Pulse Ox O2 Delivery O2 Flow Rate FiO2 05/02/24 17:51 167/105 05/02/24 17:00 98.0 73 18 98 98.0 05/02/24 14:30 Nasal Cannula* 2 28 Physical Exam Gen.: Patient lying in bed in no apparent distress. On supplemental oxygen. Head: Normocephalic, atraumatic Eyes: EOMI/PERRLA. Ears: Normal hearing. Normal anatomy. Neck/trachea: Trachea midline, supple. Nose: Normal external anatomy. Mouth: Moist mucous membranes. Chest: Decreased air entry bilaterally. No wheezing or rhonchi. Cardio vascular: Positive S1, positive S2. Regular rate and rhythm. Abdomen: Positive bowel sounds in all 4 quadrants. Soft, non-tender, non- distended. : Deferred. Rectal: Deferred Skin: Warm, dry. Extremities: 2+ radial pulses bilaterally. No lower extremity edema. Neuro: Awake, alert, oriented x3. No gross motor or sensory deficits. Cranial nerves II through XII intact. Gait not assessed. Labs/Diagnostic Data Labs Test 05/02/24 15:30 05/02/24 04:44 05/01/24 12:15 05/01/24 09:30 Range/Units Influenza Type A Antigen Negative Negative Influenza Type B Antigen Negative Negative SARS-CoV-2 Antigen (Rapid) Negative NEGATIVE White Blood Count 10.4 4.4-10.8 10^3/uL Red Blood Count 4.15 4.0-5.20 10^6/uL Hemoglobin 10.6 L 12.2-16.2 g/dL Hematocrit 32.2 L 36.0-46.0 % Mean Corpuscular Volume 77.7 L 80.0-100.0 fL Mean Corpuscular Hemoglobin 25.6 L 28.0-32.0 pg Mean Corpuscular Hemoglobin Concent 33.0 32.0-36.0 g/dL Red Cell Distribution Width 19.2 H 11.8-14.3 % Platelet Count 288 140-450 10^3/uL Mean Platelet Volume 7.8 6.9-10.8 fL Neutrophils (%) (Auto) 77.0 37.0-80.0 % Lymphocytes (%) (Auto) 12.1 10.0-50.0 % Monocytes (%) (Auto) 5.8 0.0-12.0 % Eosinophils (%) (Auto) 4.4 0.0-7.0 % Basophils (%) (Auto) 0.7 0.0-2.0 % Neutrophils # (Auto) 8.0 1.6-8.6 10 ^3/uL Lymphocytes # (Auto) 1.3 0.4-5.4 10 ^3/uL Monocytes # (Auto) 0.6 0-1.3 10 ^3/uL Eosinophils # (Auto) 0.5 0-0.8 10 ^3/uL Basophils # (Auto) 0.1 0-0.2 10 ^3/uL Nucleated Red Blood Cells 0.1 % Sodium Level 140 136-145 mmol/L Potassium Level 3.5 3.5-5.1 mmol/L Chloride Level 104 98-107 mmol/L Carbon Dioxide Level 28 20-31 mmol/L Anion Gap 8 5-15 Blood Urea Nitrogen 23 9-23 mg/dL Creatinine 1.64 H 0.550-1.02 mg/dL Glomerular Filtration Rate Calc 42 >90 mL/min BUN/Creatinine Ratio 14.0 10.0-20.0 Serum Glucose 125 H 74-106 mg/dL Calcium Level 9.5 8.7-10.4 mg/dL Total Bilirubin 0.5 0.2-1.0 mg/dL Aspartate Amino Transferase (AST) 19 13-40 U/L Alanine Aminotransferase (ALT) 23 7-40 U/L Alkaline Phosphatase 65 46-116 U/L Total Protein 6.6 5.7-8.2 g/dL Albumin 3.7 3.2-4.8 g/dL Troponin I High Sensitivity 30 </=34 ng/L B-Type Natriuretic Peptide 213.58 0-100 pg/mL Assessment Impression: Acute hypoxic respiratory failure Acute exacerbation of CHF Pulmonary edema Acute kidney injury Chronic , acute Morbid obesity with a BMI 50.6 Atelectasis Plan: Chest x-ray imaging report reviewed. Interstitial opacities. No pneumothorax. Supplemental oxygen keep O2 saturation above 92%. Bronchodilators Pain control Avoid over-sedation Incentive spirometry Diuresis euvolemia. Monitor ins and outs. Monitor renal function. Monitor electrolytes. Supplement as necessary. Diet and lifestyle modifications for weight reduction given morbid obesity. Obesity complicates all care. DVT prophylaxis-SCDs Condition: Critical Prognosis: Poor given multiple comorbidities. Rest of plan per hospitalist and other consultants. Thank you SMITH Stapleton for allowing me to participate in this patient's care. Further recommendations will depend on patient's clinical course. Please do not hesitate to contact me if you have any questions or concerns. This medical document was created using an electronic medical record system with Dragon computerized dictation system. Although this document has been carefully reviewed, there may still be some phonetic and typographical errors. These areas are purely typographical due to imperfections of the software programs, and do not reflect any compromise in the patient's medical care. Plan discussed with: Patient, Other (RN, [employer]) SUDHA IVY MD May 02, 2024 18:38
--- NOTE | 2024-05-02 18:40 | DVHPN2 ---
Progress Note - Dictate Date Seen: May 02, 2024 Medical Necessity Reason Pt with a Central, PICC or Fol: No Subjective Patient seen and examined at bedside. On supplemental oxygen . overnight events reviewed. vital signs Vital Sign Date Time Temp Pulse Resp B/P (MAP) Pulse Ox O2 Delivery O2 Flow Rate FiO2 05/02/24 17:51 167/105 05/02/24 17:00 98.0 73 18 98 98.0 05/02/24 14:30 Nasal Cannula* 2 28 Total Intake and Output 05/01/24 05/01/24 05/02/24 15:00 23:00 07:00 Intake Total 0 ml Balance 0 ml medications Current Medications Medications Dose Ordered Sig/Juan Route Start Time Stop Time Status Last Admin Dose Admin Furosemide 40 mg DAILY IV 05/02/24 10:00 05/02/24 09:45 Sodium Chloride 10 ml Q8HR IV 05/01/24 14:00 05/02/24 14:18 Acetaminophen/ Hydrocodone Bitart 1 tab Q4HP PRN PO 05/01/24 11:45 Ondansetron HCl 4 mg Q4HP PRN IV 05/01/24 11:45 Docusate Sodium 100 mg BIDPRN PRN PO 05/01/24 11:45 Acetaminophen 650 mg Q6HP PRN PO 05/01/24 11:45 05/02/24 05:36 Nitroglycerin 0.4 mg Q5MINP PRN SL 05/01/24 13:00 Morphine Sulfate 2 mg Q30M PRN IV 05/01/24 13:00 Albuterol 2.5 mg Q4HPRN PRN NEB 05/01/24 13:30 Ipratropium [place] 0.5 mg Q4HPRN PRN NEB 05/01/24 13:30 Carvedilol 12.5 mg Q12HR PO 05/02/24 10:00 05/02/24 10:13 Hydralazine HCl 10 mg Q6HP PRN IV 05/02/24 18:15 UNV objective Gen.: Patient lying in bed in no apparent distress. On supplemental oxygen. Head: Normocephalic, atraumatic Eyes: EOMI/PERRLA. Ears: Normal hearing. Normal anatomy. Neck/trachea: Trachea midline, supple. Nose: Normal external anatomy. Mouth: Moist mucous membranes. Chest: Decreased air entry bilaterally. No wheezing or rhonchi. Cardio vascular: Positive S1, positive S2. Regular rate and rhythm. Abdomen: Positive bowel sounds in all 4 quadrants. Soft, non-tender, non- distended. : Deferred. Rectal: Deferred Skin: Warm, dry. Extremities: 2+ radial pulses bilaterally. No lower extremity edema. Neuro: Awake, alert, oriented x3. No gross motor or sensory deficits. Cranial nerves II through XII intact. Gait not assessed. laboratory and microbiology Laboratory Tests 05/02/24 04:44 Test 05/02/24 04:44 Range/Units Serum Glucose 125 H 74-106 mg/dL Assessment/Plan Impression: Acute hypoxic respiratory failure Acute exacerbation of CHF Pulmonary edema Acute kidney injury Chronic , acute Morbid obesity with a BMI 50.6 Atelectasis Plan: Supplemental oxygen On 2 liters/minute via nasal cannula. keep O2 saturation above 92%. Patient feeling better Taper oxygen as tolerated. Bronchodilators Pain control Avoid over-sedation Incentive spirometry Maintain euvolemia with Lasix daily. Monitor ins and outs. Monitor renal function. Monitor electrolytes. Supplement as necessary. Diet and lifestyle modifications for weight reduction given morbid obesity. Obesity complicates all care. DVT prophylaxis-SCDs Patient will be stable from pulmonary standpoint in the a.m. for discharge if liberated from O2 or arrange for home O2. Recommend outpatient evaluation for obstructive sleep apnea. Patient has a stop Bang score of five Prognosis: Guarded given multiple comorbidities. Rest of plan per hospitalist and other consultants. Thank you SMITH Stapleton for allowing me to participate in this patient's care. Further recommendations will depend on patient's clinical course. Please do not hesitate to contact me if you have any questions or concerns. This medical document was created using an electronic medical record system with Prelert dictation system. Although this document has been carefully reviewed, there may still be some phonetic and typographical errors. These areas are purely typographical due to imperfections of the software programs, and do not reflect any compromise in the patient's medical care. Plan discussed with: Patient, Other (NOAM Bennett MD) SUDHA IVY MD May 02, 2024 18:40
[2024-05-03] VITALS (10 sets, daily range): BP systolic 148–198; BP diastolic 82–106; PULSE 70–90; RESP 17–20; TEMP 97.3–98.9; O2SAT 90–97
[2024-05-03 03:07] LABS: Urine Bacteria None Seen /hpf (None Seen)
[2024-05-03 03:31] LABS: Urine Blood TRACE /uL (Negative); Urine Clarity Clear (Clear); Urine Color Light-Yellow (Yellow); Urine Protein, UAD 2+ (Negative); Urine Urobilinogen Normal (Negative); Urine WBC 2 /hpf (0 - 5); Urine pH 5.5 (5.0-9.0)
[2024-05-03 03:38] LABS: Protein, Urine 223.7 mg/dL (1-14)
[2024-05-03 03:40] LABS: Amphetamine Screen, Urine Neg (NEGATIVE); Barbiturate Scree,Urine Neg (NEGATIVE); Benzodiazephine Screen, Urine Neg (NEGATIVE); Cocaine Screen, Urine Neg (NEGATIVE)
[2024-05-03 03:41] LABS: Cannabinoid Screen, Urine Neg (NEGATIVE); Creatinine, Urine 139.17 mg/dL (30.0-125.0); Opiate Scree,Urine Neg (NEGATIVE); Phencyclidine Screen, Urine Neg (NEGATIVE); Urine Protein/Creatinine Ratio 1.61
[2024-05-03 05:57] LABS: Calcium 9.7 mg/dL (8.7-10.4); Chloride 104 mmol/L (98-107); Potassium 3.5 mmol/L (3.5-5.1); Sodium 139 mmol/L (136-145)
[2024-05-03 05:58] LABS: Anion Gap 7 (5-15); Carbon Dioxide 28 mmol/L (20-31)
[2024-05-03 06:01] LABS: % Iron Saturation 9.3 % (15-50)
[2024-05-03 06:02] LABS: Eosinophils # (auto) 0.5 10 ^3/uL (0-0.8); Mean Corpuscular Hemoglobin 25.4 pg (28.0-32.0); Monocytes # (auto) 0.6 10 ^3/uL (0-1.3); Platelet Count (auto) 318 10^3/uL (140-450); White Blood Cell 8.5 10^3/uL (4.4-10.8)
[2024-05-03 06:03] LABS: Blood Urea Nitrogen 24 mg/dL (9-23); Glucose 102 mg/dL (74-106); Triglycerides 117 mg/dL (< 150)
[2024-05-03 06:04] LABS: Basophils # (auto) 0.1 10 ^3/uL (0-0.2); Basophils % (auto) 0.7 % (0.0-2.0); Eosinophils % (auto) 6.3 % (0.0-7.0); Hematocrit 32.8 % (36.0-46.0); Hemoglobin 10.6 g/dL (12.2-16.2); LDL Cholesterol 100 mg/dL (< 100); Lymphocytes # (auto) 1.7 10 ^3/uL (0.4-5.4); Lymphocytes % (auto) 19.5 % (10.0-50.0); Mean Corpuscular Hgb Conc. 32.2 g/dL (32.0-36.0); Neutrophils # (auto) 5.7 10 ^3/uL (1.6-8.6); Neutrophils % (auto) 66.5 % (37.0-80.0); Red Blood Cells 4.15 10^6/uL (4.0-5.20); Red Cell Distribution Width 19.3 % (11.8-14.3)
[2024-05-03 06:05] LABS: Cholesterol 149 mg/dL (< 200); Ferritin 36.2 ng/mL (10-291); HDL Cholesterol 28 mg/dL (40-59)
--- NOTE | 2024-05-03 13:49 | DVHPNRES ---
Progress Note Date Seen: May 03, 2024 Resident Creating Document: MAIKELJSoniaDARCYSHMUEL RESIDENT Medical Necessity Reason Pt with a Central, PICC or Fol: No Subjective Review of Systems Patient is a 33-year-old female with a past medical history of congestive heart failure, hyperlipidemia, gallstones, hypertension came to the ED with a chief complaint of cough and shortness of breath for 3-4 days before admission. Patient reported that her son got sick with cough and congestion about a week ago following which she started having congestion and cough which was initially dry and then he started having whitish sputum which turned greenish white later. Patient denied fever, chills, rigors, headache, dizziness, altered level of consciousness. Patient reports at home she uses 2 L/minute oxygen for the past 2 years after she was diagnosed with congestive heart failure. Patient reports orthopnea and history of LOPEZ. Patient's blood pressure on arrival was elevated at 236/120 mmHg, and tachycardia. Past medical history: As per HPI Past Surgical history: History of X 2 Social history: Patient denies smoking, alcohol, drug use Home medications: Carvedilol 12.5 mg b.i.d., furosemide 20 mg b.i.d., spironolactone 50 mg b.i.d., losartan 100 mg once daily, nifedipine 60 mg once daily Review of systems Patient seen and examined at the bedside. Patient is alert and oriented to time, place and person. Patient's blood pressure elevated at the time of examination. Patient was saturating 92% on room air and did not report of shortness of breath. Cough with mild sputum whitish in color. No hemoptysis. Patient reported no headache Objective vital signs Vital Sign Date Time Temp Pulse Resp B/P (MAP) Pulse Ox O2 Delivery O2 Flow Rate FiO2 05/03/24 12:40 97.8 86 18 160/82 (108) 93 97.8 05/03/24 10:00 Room Air* 0 21 Total Intake and Output 05/02/24 05/02/24 05/03/24 15:00 23:00 07:00 Intake Total 750 ml 700 ml Output Total 600 ml Balance 750 ml 100 ml medications Current Medications Medications Dose Ordered Sig/Juan Route Start Time Stop Time Status Last Admin Dose Admin Sodium Chloride 10 ml Q8HR IV 05/01/24 14:00 05/03/24 13:46 10 ML Acetaminophen/ Hydrocodone Bitart 1 tab Q4HP PRN PO 05/01/24 11:45 Ondansetron HCl 4 mg Q4HP PRN IV 05/01/24 11:45 Docusate Sodium 100 mg BIDPRN PRN PO 05/01/24 11:45 Acetaminophen 650 mg Q6HP PRN PO 05/01/24 11:45 05/02/24 05:36 650 MG Nitroglycerin 0.4 mg Q5MINP PRN SL 05/01/24 13:00 Morphine Sulfate 2 mg Q30M PRN IV 05/01/24 13:00 Albuterol 2.5 mg Q4HPRN PRN NEB 05/01/24 13:30 Ipratropium [place] 0.5 mg Q4HPRN PRN NEB 05/01/24 13:30 Carvedilol 12.5 mg Q12HR PO 05/02/24 10:00 05/03/24 09:51 12.5 MG Hydralazine HCl 10 mg Q6HP PRN IV 05/02/24 18:15 05/02/24 22:25 10 MG Nifedipine 60 mg DAILY PO 05/03/24 15:00 Furosemide 40 mg BIDD IV 05/03/24 18:00 Losartan Potassium 50 mg HS PO 05/03/24 22:00 Examination Physical Examination Gen - no pallor, no icterus, no cyanosis, no clubbing, no LAD, 1+ pedal edema . Skin - Patients skin is warm and dry. HEENT - normocephalic, atraumatic, moist mucous membranes. Neck - full ROM, no LAD, no JVD. Pulmonary - B/L vesicular breath sounds. no crackles , no wheezing, no stridor. cardiovascular - normal S1,S2 heard. No S3 heard. no murmurs heard. peripheral pulses normal radial 2+, pedal 2+. capillary refill normal <2 secs. GI - soft abdomen without tenderness to palpation. no hepatospleenomegaly. Bowel sounds + Neurological - Patient is A/O X 3 . Bilateral upper extremity strength 5/5, bilateral lower extremity strength 5/5, no facial droop, normal speech, no tremor, no sensory deficiets. laboratory and microbiology Laboratory Tests 05/03/24 05:09 Test 05/03/24 05:09 Range/Units Serum Glucose 102 74-106 mg/dL Microbiology Date/Time Source Procedure Growth Status 05/02/24 21:23 Sputum Expectorated Sputum Gram Stain - Final Resulted 05/02/24 21:23 Sputum Expectorated Sputum Respiratory Culture - Preliminary Resulted Problem List/Assessment/Plan Problem List/Assessment/Plan Assessment and plan # Acute Hypoxic respiratory failure likely d/t exacerbation of HFpEF # Acute exacerbation of heart failure with preserved ejection fraction - Echocardiogram shows LVEF 50%, mild concentric left ventricular hypertrophy. Slightly reduced right ventricular systolic pressure 30 mmHg. - On IV furosemide 40mg bid - On 2l O2 via nasal cannula - Continued on Carvedilol - strict Input and Output # Acute bronchitis likely viral in etiology # ? B/L lower lung lobe atelectasis - respiratory culture pending - Covid 19 and influenza A&B negative - On albuterol and ipratropium nebulisers as needed - On O2 support # JEREMI on CKD likely hemodynamically mediated d/t worsened heart failure - Urine sodium , urine protein, urine creatinine ratio pending - patient is on lasix 40mg IV bid # Hypertensive emergency - on admission BP >200/120 - patient is currently on carvedilol and nifedipine and losartan. hydralazine prn - target systolic blood pressure < 150mmhg # LOPEZ - On BiPaP at night # Microcytic hypochromic anemia - Hemoglobin stable around 10.6mg/dl - elevated RDW - Iron studies show low iron, low % sat, ferritin at lower limit of normal # Morbid obesity BMI-58 - patient counselled on lifestyle modification for more than 15 mins. Goals of care discussed with the patient for over 35 minutes. Full code Plan discussed with Dr. Michael Plan discussed with: Patient My Orders My Orders Orders - HANY GARCIA RESIDENT Procedure Category Date Status Time Incentive Spirometry ORDERS 05/02/24 Transmitted 18:51 Vitamin D, 25-Hydroxy LAB 05/03/24 In Process 04:00 Strict I & O SIRIA 05/03/24 In Process 08:33 Maintain Fluid SIRIA 05/03/24 In Process Restrictions 08:33 Nifedipine Er PHA 05/03/24 In Process (Procardia Xl 15:00 Furosemide Injection PHA 05/03/24 In Process (Lasix Injection) 18:00 Losartan Tablet PHA 05/03/24 In Process (Cozaar Tablet) 22:00 Date of Service: May 03, 2024 Billing Provider: JOSE EDWARDS MD Common Visit Codes: [id number] INP/OBS CARE(HIGH) HANY GARCIA RESIDENT May 03, 2024 13:49 JOSE EDWARDS MD May 08, 2024 00:03
[2024-05-03] MEDS: NIFEdipine ER 30 MG TAB PO SCH (15:05)
[2024-05-03] MEDS: FUROSEMIDE 40 MG/4 ML VIAL IV SCH (17:30)
[2024-05-03] MEDS: LOSARTAN POTASSIUM 50 MG TAB PO SCH (22:13)
--- NOTE | 2024-05-03 23:43 | DVHPN2 ---
Progress Note - Dictate Date Seen: May 03, 2024 Medical Necessity Reason Pt with a Central, PICC or Fol: No Subjective Patient seen and examined at bedside. Breathing on room air Overnight events reviewed. vital signs Vital Sign Date Time Temp Pulse Resp B/P (MAP) Pulse Ox O2 Delivery O2 Flow Rate FiO2 05/03/24 23:11 92 180/99 05/03/24 21:00 98.9 20 90 98.9 05/03/24 20:00 Room Air* 0 21 Total Intake and Output 05/02/24 05/02/24 05/03/24 15:00 23:00 07:00 Intake Total 750 ml 700 ml Output Total 600 ml Balance 750 ml 100 ml medications Current Medications Medications Dose Ordered Sig/Juan Route Start Time Stop Time Status Last Admin Dose Admin Sodium Chloride 10 ml Q8HR IV 05/01/24 14:00 05/03/24 22:13 10 ML Acetaminophen/ Hydrocodone Bitart 1 tab Q4HP PRN PO 05/01/24 11:45 Ondansetron HCl 4 mg Q4HP PRN IV 05/01/24 11:45 Docusate Sodium 100 mg BIDPRN PRN PO 05/01/24 11:45 Acetaminophen 650 mg Q6HP PRN PO 05/01/24 11:45 05/02/24 05:36 650 MG Nitroglycerin 0.4 mg Q5MINP PRN SL 05/01/24 13:00 Morphine Sulfate 2 mg Q30M PRN IV 05/01/24 13:00 Albuterol 2.5 mg Q4HPRN PRN NEB 05/01/24 13:30 Ipratropium [place] 0.5 mg Q4HPRN PRN NEB 05/01/24 13:30 Carvedilol 12.5 mg Q12HR PO 05/02/24 10:00 05/03/24 22:11 12.5 MG Hydralazine HCl 10 mg Q6HP PRN IV 05/02/24 18:15 05/03/24 20:54 10 MG Nifedipine 60 mg DAILY PO 05/03/24 15:00 05/03/24 15:05 60 MG Furosemide 40 mg BIDD IV 05/03/24 18:00 05/03/24 17:30 40 MG Losartan Potassium 50 mg HS PO 05/03/24 22:00 05/03/24 22:13 50 MG objective Gen.: Patient lying in bed in no apparent distress. Breathing on room air. Head: Normocephalic, atraumatic Eyes: EOMI/PERRLA. Ears: Normal hearing. Normal anatomy. Neck/trachea: Trachea midline, supple. Nose: Normal external anatomy. Mouth: Moist mucous membranes. Chest: Decreased air entry bilaterally. No wheezing or rhonchi. Cardio vascular: Positive S1, positive S2. Regular rate and rhythm. Abdomen: Positive bowel sounds in all 4 quadrants. Soft, non-tender, non- distended. : Deferred. Rectal: Deferred Skin: Warm, dry. Extremities: 2+ radial pulses bilaterally. No lower extremity edema. Neuro: Awake, alert, oriented x3. No gross motor or sensory deficits. Cranial nerves II through XII intact. Gait not assessed. laboratory and microbiology Laboratory Tests 05/03/24 05:09 Test 05/03/24 05:09 Range/Units Serum Glucose 102 74-106 mg/dL Assessment/Plan Impression: Acute hypoxic respiratory failure Acute exacerbation of CHF Pulmonary edema Acute kidney injury Chronic , acute Morbid obesity with a BMI 50.6 Atelectasis Events: Breathing on room air No respiratory distress. Improved O2 requirements, weaned from 2 LPM NC. Echo reviewed, shows LVEF 50%, RVSP 30 mmHg. [id number] TR, severe MR. Ochoa w/ Lasix as tolerated Monitor renal function Monitor electrolytes. Supplement as necessary. Strict ins and outs - fluid restriction. Blood pressure control Continue CPAP at night for suspected sleep apnea. Labs and imaging reviewed. Rest of plan as noted below. Plan: Supplemental oxygen PRN keep O2 saturation above 92%. Bronchodilators Pain control Avoid over-sedation Incentive spirometry Maintain euvolemia with Lasix daily. Monitor ins and outs. Monitor renal function. Monitor electrolytes. Supplement as necessary. Diet and lifestyle modifications for weight reduction given morbid obesity. Obesity complicates all care. DVT prophylaxis-SCDs Patient will be stable from pulmonary standpoint in the a.m. for discharge if liberated from O2 or arrange for home O2. Recommend outpatient evaluation for obstructive sleep apnea. Patient has a stop Bang score of five Prognosis: Guarded given multiple comorbidities. Rest of plan per hospitalist and other consultants. Thank you [employer] Daya for allowing me to participate in this patient's care. Further recommendations will depend on patient's clinical course. Please do not hesitate to contact me if you have any questions or concerns. This medical document was created using an electronic medical record system with [employer] dictation system. Although this document has been carefully reviewed, there may still be some phonetic and typographical errors. These areas are purely typographical due to imperfections of the software programs, and do not reflect any compromise in the patient's medical care. Plan discussed with: Patient, Other (NOAM Bennett) SUDHA IVY MD May 03, 2024 23:43
[2024-05-04] VITALS (9 sets, daily range): BP systolic 136–165; BP diastolic 81–96; PULSE 77–88; RESP 18–20; TEMP 97.5–98.3; O2SAT 90–95
[2024-05-04] MEDS: FUROSEMIDE 40 MG/4 ML VIAL IV ONE (00:09)
[2024-05-04] MEDS: hydrALAZINE HCL 20 MG/ML VL IV ONE (00:10)
[2024-05-04 07:20] LABS: Anion Gap 9 (5-15); Calcium 9.7 mg/dL (8.7-10.4); Carbon Dioxide 31 mmol/L (20-31); Chloride 101 mmol/L (98-107); Sodium 141 mmol/L (136-145)
[2024-05-04 07:22] LABS: Basophils # (auto) 0.1 10 ^3/uL (0-0.2); Lymphocytes # (auto) 1.2 10 ^3/uL (0.4-5.4); Mean Corpuscular Hemoglobin 25.5 pg (28.0-32.0); Monocytes # (auto) 0.6 10 ^3/uL (0-1.3); Monocytes % (auto) 6.6 % (0.0-12.0); White Blood Cell 8.7 10^3/uL (4.4-10.8)
[2024-05-04 07:24] LABS: Basophils % (auto) 1.2 % (0.0-2.0); Eosinophils # (auto) 0.4 10 ^3/uL (0-0.8); Hemoglobin 11.1 g/dL (12.2-16.2); Lymphocytes % (auto) 14.3 % (10.0-50.0); Mean Corpuscular Hgb Conc. 32.5 g/dL (32.0-36.0); Mean Corpuscular Volume 78.4 fL (80.0-100.0); Neutrophils # (auto) 6.3 10 ^3/uL (1.6-8.6); Neutrophils % (auto) 72.9 % (37.0-80.0); Platelet Count (auto) 346 10^3/uL (140-450); Red Blood Cells 4.33 10^6/uL (4.0-5.20); Red Cell Distribution Width 19.2 % (11.8-14.3)
[2024-05-04 07:26] LABS: BUN/Creatinine Ratio 15.5 (10.0-20.0); Blood Urea Nitrogen 23 mg/dL (9-23)
[2024-05-04 07:29] LABS: Glucose 122 mg/dL (74-106); Potassium 3.3 mmol/L (3.5-5.1)
[2024-05-04] MEDS: POTASSIUM CHL 20 Meq TABLET PO ONE (11:16)
[2024-05-04] MEDS ORDERED: NIFEdipine ER 30 MG TAB PO ONE (11:45)
--- NOTE | 2024-05-04 18:19 | DVHDSRES ---
Discharge Summary Date of Admission Resident Creating Document: HANY GARCIA RESIDENT May 01, 2024 at 12:46 Date of Discharge: May 04, 2024 Admitting Diagnosis Cough and shortness of breath Wounds: no wounds Labs/Diagnostic Data: Laboratory Results Test 05/04/24 06:39 05/03/24 05:20 05/03/24 05:09 05/03/24 01:39 White Blood Count 8.7 10^3/uL (4.4-10.8) Red Blood Count 4.33 10^6/uL (4.0-5.20) Hemoglobin 11.1 g/dL (12.2-16.2) Hematocrit 34.0 % (36.0-46.0) Mean Corpuscular Volume 78.4 fL (80.0-100.0) Mean Corpuscular Hemoglobin 25.5 pg (28.0-32.0) Mean Corpuscular Hemoglobin Concent 32.5 g/dL (32.0-36.0) Red Cell Distribution Width 19.2 % (11.8-14.3) Platelet Count 346 10^3/uL (140-450) Mean Platelet Volume 8.0 fL (6.9-10.8) Neutrophils (%) (Auto) 72.9 % (37.0-80.0) Lymphocytes (%) (Auto) 14.3 % (10.0-50.0) Monocytes (%) (Auto) 6.6 % (0.0-12.0) Eosinophils (%) (Auto) 5.0 % (0.0-7.0) Basophils (%) (Auto) 1.2 % (0.0-2.0) Neutrophils # (Auto) 6.3 10 ^3/uL (1.6-8.6) Lymphocytes # (Auto) 1.2 10 ^3/uL (0.4-5.4) Monocytes # (Auto) 0.6 10 ^3/uL (0-1.3) Eosinophils # (Auto) 0.4 10 ^3/uL (0-0.8) Basophils # (Auto) 0.1 10 ^3/uL (0-0.2) Nucleated Red Blood Cells 0.0 % Sodium Level 141 mmol/L (136-145) Potassium Level 3.3 mmol/L (3.5-5.1) Chloride Level 101 mmol/L (98-107) Carbon Dioxide Level 31 mmol/L (20-31) Anion Gap 9 (5-15) Blood Urea Nitrogen 23 mg/dL (9-23) Creatinine 1.48 mg/dL (0.550-1.02) Glomerular Filtration Rate Calc 47 mL/min (>90) BUN/Creatinine Ratio 15.5 (10.0-20.0) Serum Glucose 122 mg/dL (74-106) Calcium Level 9.7 mg/dL (8.7-10.4) Iron Level 31 ug/dL (50-170) Total Iron Binding Capacity 334 ug/dL (250-425) Percent Iron Saturation 9.3 % (15-50) Ferritin 36.2 ng/mL (10-291) Triglycerides Level 117 mg/dL (< 150) Cholesterol Level 149 mg/dL (< 200) LDL Cholesterol 100 mg/dL (< 100) HDL Cholesterol 28 mg/dL (40-59) Vitamin B12 Level 470 pg/mL (211-911) Thyroid Stimulating Hormone (TSH) 0.63 uIU/mL (0.55-4.78) Urine Color Light-yellow (Yellow) Urine Clarity Clear (Clear) Urine pH 5.5 (5.0-9.0) Urine Specific [place] 1.020 (1.001-1.035) Urine Protein 2+ (Negative) Urine Ketones Negative (Negative) Urine Blood Trace /uL (Negative) Urine Nitrite Negative (Negative) Urine Bilirubin Negative (Negative) Urine Urobilinogen Normal mg/dL (Negative) Urine Leukocyte Esterase Negative /uL (Negative) Urine RBC 2 /hpf (0 - 4) Urine WBC 2 /hpf (0 - 5) Urine Squamous Epithelial Cells Few /hpf (<5) Urine Bacteria None seen /hpf (None Seen) Urine Creatinine 139.17 mg/dL (30.0-125.0) Urine Protein/Creatinine Ratio 1.61 Urine Sodium 24 mmol/L (40-220) Urine Glucose Trace mg/dL (Normal) Urine Total Protein 223.7 mg/dL (1-14) Urine Opiates Screen Neg (NEGATIVE) Urine Fentanyl Screen Neg (NEGATIVE) Urine Barbiturates Screen Neg (NEGATIVE) Urine Phencyclidine Screen Neg (NEGATIVE) Urine Amphetamines Screen Neg (NEGATIVE) Urine Benzodiazepines Screen Neg (NEGATIVE) Urine Cocaine Screen Neg (NEGATIVE) Urine Cannabinoids Screen Neg (NEGATIVE) Test 11/26/24 15:30 05/02/24 04:44 05/01/24 12:15 05/01/24 09:30 Influenza Type A Antigen Negative (Negative) Influenza Type B Antigen Negative (Negative) SARS-CoV-2 Antigen (Rapid) Negative (NEGATIVE) Total Bilirubin 0.5 mg/dL (0.2-1.0) Aspartate Amino Transferase (AST) 19 U/L (13-40) Alanine Aminotransferase (ALT) 23 U/L (7-40) Alkaline Phosphatase 65 U/L (46-116) Total Protein 6.6 g/dL (5.7-8.2) Albumin 3.7 g/dL (3.2-4.8) Troponin I High Sensitivity 30 ng/L (</=34) B-Type Natriuretic Peptide 213.58 pg/mL (0-100) Other Laboratory Tests 05/04/24 06:39 Brief Hx & Hospital Course: Patient is a 33-year-old female with a past medical history of congestive heart failure, hyperlipidemia, gallstones, hypertension came to the ED with a chief complaint of cough and shortness of breath for 3-4 days before admission. Patient reported that her son got sick with cough and congestion about a week ago following which she started having congestion and cough which was initially dry and then he started having whitish sputum which turned greenish white later. Patient denied fever, chills, rigors, headache, dizziness, altered level of consciousness. Patient reports at home she uses 2 L/minute oxygen for the past 2 years after she was diagnosed with congestive heart failure. Patient reports orthopnea and history of LOPEZ. Patient's blood pressure on arrival was elevated at 236/120 mmHg, and tachycardia. Hospital course Patient was put on 2L O2 via nasal cannula. patient had fluid overload with bilateral lung base rales and bilateral pedal edema. Furosemide 40mg IV once daily was started along with carvedilol 12.5mg Bid which she takes at home. Losartan and spironolactone were held initially given the JEREMI. Patient had minimal improvement following which the dose of furosemide was inreased to 40mg IV bid. patient had improvement in breathing and was tried to wean off O2 support, which the patient tolerated well but her Blood pressure kept elevated for which the patient was started on losartan 50 mg and nifedipine dose was increased to 90mg once daily. patient was not yet stable for discharge and needed further inpatient management given High blood pressures and fluid overload. Patient was explained about her condition and she understood the consequences that may follow leaving AMA. Patient left AMA Physical exam on the day of leaving AMA: Gen - no pallor, no icterus, no cyanosis, no clubbing, no LAD, 1+ pedal edema . Skin - Patients skin is warm and dry. HEENT - normocephalic, atraumatic, moist mucous membranes. Neck - full ROM, no LAD, no JVD. Pulmonary - B/L vesicular breath sounds. no crackles , no wheezing, no stridor. cardiovascular - normal S1,S2 heard. No S3 heard. no murmurs heard. peripheral pulses normal radial 2+, pedal 2+. capillary refill normal <2 secs. GI - soft abdomen without tenderness to palpation. no hepatosplenomegaly. Bowel sounds + Neurological - Patient is A/O X 3 . Bilateral upper extremity strength 5/5, bilateral lower extremity strength 5/5, no facial droop, normal speech, no tremor, no sensory deficiets. Discussed with Dr. Pedraza Consults/Reason for consult Pulmonary consultation for acute hypoxic respiratory failure Operations or Procedures Echocardiogram showed Normal left ventricular size and dimension. Normal left ventricular systolic function estimated ejection fraction is 50%. There is mild concentric left ventricular hypertrophy. There is normal diastolic function. Normal right ventricular size and dimension. Normal right ventricular systolic function. Slightly increased right ventricular systolic 30. Moderately dilated atrium. Mildly dilated right atrium. The aortic Valve is thickened no significant stenosis or regurgitation. There is severe mitral vegetation with a possible prolapse of the posterior leaflet. There is [id number] tricuspid valve regurgitation. Pulmonary valve is grossly normal. No pericardial effusion. Normal Condition at Discharge: Undetermined (Left AMA) Final Diagnosis/Problems List # Acute Hypoxic respiratory failure likely d/t exacerbation of HFpEF # Acute exacerbation of heart failure with preserved ejection fraction # Acute bronchitis likely viral in etiology # ? B/L lower lung lobe atelectasis # JEREMI on CKD likely hemodynamically mediated d/t worsened heart failure # Hypertensive emergency # ?LOPEZ # Microcytic hypochromic anemia # Morbid obesity BMI-58 Discharge Disposition: AMA Discharge Instruct/Medications Diet: See Comment (Left AMA) Activity: See Comment (Left AMA) Follow Up/Referral: Left AMA Medications: Left AMA Discharge Statement: "Patient was advised to return to the ER or call 911 if any headaches, dizziness, shortness of breath, chest pain, abdominal pain, bleeding, fevers, or worsening of medical condition. Patient was counseled about treatment plan, medications, possible side effects, patientverbalized understanding. All questions were answered to the best of my ability. This discharge took greater then 30 minutes in planning, reviewing documentation, counseling the patient, and discussing with other team members." ASSESSMENT ASSESSMENT Assessment Addendum Addendum Addendum I was physically present for the suazo portions of the service provided to patient by THE RESIDENT. I have reviewed the documentation, discussed the case with resident and agree with the resident's documentation except as noted. Also the patient's clinical case was discussed with the patient's nurse. This medical document was created using an electronic medical record system with computerized dictation system. Although this document has been carefully reviewed, there might still be some phonetic and typographical errors. These areas are purely typographical due to imperfections of the software programs, and do not reflect any compromise in the patient's medical care. Late signature. Date of Service: May 04, 2024 Billing Provider: BAY PEDRAZA MD Common Visit Codes: 24075-FDG/OBS DISCH DAY >30min HANY GARCIA RESIDENT May 04, 2024 18:19 BAY PEDRAZA MD May 07, 2024 05:24
--- NOTE | 2024-05-04 20:27 | DVHPN2 ---
Progress Note - Dictate Date Seen: May 04, 2024 Medical Necessity Reason Pt with a Central, PICC or Fol: No Subjective Patient seen and examined at bedside. Breathing on room air Overnight events reviewed. vital signs Vital Sign Date Time Temp Pulse Resp B/P (MAP) Pulse Ox O2 Delivery O2 Flow Rate FiO2 05/04/24 14:12 88 18 150/81 93 0.0 05/04/24 13:30 98.3 98.3 05/04/24 09:58 Nasal Cannula Total Intake and Output 05/03/24 05/03/24 05/04/24 14:59 22:59 06:59 Intake Total 1259 ml 175 ml Balance 1259 ml 175 ml objective Gen.: Patient lying in bed in no apparent distress. Breathing on room air. Head: Normocephalic, atraumatic Eyes: EOMI/PERRLA. Ears: Normal hearing. Normal anatomy. Neck/trachea: Trachea midline, supple. Nose: Normal external anatomy. Mouth: Moist mucous membranes. Chest: Decreased air entry bilaterally. No wheezing or rhonchi. Cardio vascular: Positive S1, positive S2. Regular rate and rhythm. Abdomen: Positive bowel sounds in all 4 quadrants. Soft, non-tender, non- distended. : Deferred. Rectal: Deferred Skin: Warm, dry. Extremities: 2+ radial pulses bilaterally. No lower extremity edema. Neuro: Awake, alert, oriented x3. No gross motor or sensory deficits. Cranial nerves II through XII intact. Gait not assessed. laboratory and microbiology Laboratory Tests 05/04/24 06:39 Test 05/04/24 06:39 Range/Units Serum Glucose 122 H 74-106 mg/dL Assessment/Plan Impression: Acute hypoxic respiratory failure Acute exacerbation of CHF Pulmonary edema Acute kidney injury Chronic , acute Morbid obesity with a BMI 50.6 Atelectasis Events: Remains on room air No respiratory distress. Incentive spirometry Diurese w/ Lasix as tolerated Monitor renal function Monitor electrolytes. Supplement as necessary. Strict ins and outs - fluid restriction. Blood pressure control Continue CPAP at night for suspected sleep apnea. Note, patient left AMA. She left with knowledge of risk and benefits of doing so. Recommend outpatient sleep study with Dr. Avila. Echo showing LVEF 50%, RVSP 30 mmHg. [id number] TR, severe MR. Labs and imaging reviewed. Rest of plan as noted below. Plan: Supplemental oxygen PRN keep O2 saturation above 92%. Bronchodilators Pain control Avoid over-sedation Incentive spirometry Maintain euvolemia with Lasix daily. Monitor ins and outs. Monitor renal function. Monitor electrolytes. Supplement as necessary. Diet and lifestyle modifications for weight reduction given morbid obesity. Obesity complicates all care. DVT prophylaxis-SCDs Recommend outpatient evaluation for obstructive sleep apnea. Patient has a stop Bang score of five Prognosis: Guarded given multiple comorbidities. Rest of plan per hospitalist and other consultants. Thank you SMITH Stapleton for allowing me to participate in this patient's care. Further recommendations will depend on patient's clinical course. Please do not hesitate to contact me if you have any questions or concerns. This medical document was created using an electronic medical record system with [employer] dictation system. Although this document has been carefully reviewed, there may still be some phonetic and typographical errors. These areas are purely typographical due to imperfections of the software programs, and do not reflect any compromise in the patient's medical care. Plan discussed with: Patient, Other (NOAM Salinas) SUDHA IVY MD May 04, 2024 20:26
== END 2024-05-04 18:05 | disposition left against medical advice (07) | DRG 194 ==
LOC: ER 07:56 → TELE 12:46 → TELE-WESTW 22:32 → WEST WING 05-04 11:28
PROVIDERS: ADMIT Student in an Organized Health Care Education/Training Program; ATTEND Student in an Organized Health Care Education/Training Program
DX: I11.0 Hypertensive heart disease with heart failure (principal); J96.01 Acute respiratory failure with hypoxia; N17.9 Acute kidney failure, unspecified; I50.33 Acute on chronic diastolic (congestive) heart failure; J81.1 Chronic pulmonary edema; Z20.822 Contact with and (suspected) exposure to COVID-19; I16.1 Hypertensive emergency; E66.01 Morbid (severe) obesity due to excess calories; J98.11 Atelectasis; E78.5 Hyperlipidemia, unspecified; J20.9 Acute bronchitis, unspecified; D64.9 Anemia, unspecified; Z53.29 Procedure and treatment not carried out because of patient's decision for other reasons; Z68.43 Body mass index [BMI] 50.0-59.9, adult; Z83.3 Family history of diabetes mellitus; Z82.49 Family history of ischemic heart disease and other diseases of the circulatory system; Z98.891 History of uterine scar from previous surgery
CPT/HCPCS: 36415; 71046; 80048; 80053; 80061; 80307; 81001; 82306; 82570; 82607; 82728; 83540; 83550; 83880; 84156; 84300; 84443; 84484; 85025; 87070; 87205; 87426; 87804; 93005; 93306; 96361; 96374; 96375; 99291; G0378

== ENCOUNTER 2025-01-06 15:43 | Inpatient (IN) | payer MEDICAID ==
[~2025-01-06] VITALS: Ht 154.9 cm; Wt 1.0 kg
--- NOTE | 2025-01-06 15:54 | ED.PDOC ---
History of Present Illness HPI Comments 34-year-old female came to the ER stating that she has been having chest tightness shortness a breath since yesterday. History of hypertension CHF. Her blood pressure on arrival was 260/128. She does have leg swelling along with the shortness a breath. She does state that she has been taking her Lasix. Sh ortness a breath upon rest and ambulation. She is not on oxygen. Denies any other symptoms. 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 History Social History Smoker: Non-Smoker Alcohol: Denies ETOH Use Drugs: Denies Drug Use Constitutional: denies: chills, diaphoresis, fatigue, fever, malaise, sweats, weakness, others EENTM: denies: blurred vision, double vision, ear bleeding, ear discharge, ear drainage, ear pain, ear ringing, eye pain, eye redness, hearing loss, mouth pain, mouth swelling, nasal discharge, nose bleeding, nose congestion, nose pain, photophobia, tearing, throat pain, throat swelling, voice changes, others Respiratory: reports: shortness of breath; denies: cough, hemoptysis, orthopnea, SOB at rest, SOB with excertion, stridor, wheezing, others Cardiovascular: denies: chest pain, dizzy spells, diaphoresis, Dyspnea on exertion, edema, irregular heart beat, left arm pain, lightheadedness, palpitations, PND, syncope, others Gastrointestinal: denies: abdomen distended, abdominal pain, blood streaked bowels, constipated, diarrhea, dysphagia, difficulty swallowing, hematemesis, melena, nausea, poor appetite, poor fluid intake, rectal bleeding, rectal pain, vomiting, others Genitourinary: denies: abnormal vagina bleeding, burning, dyspareunia, dysuria, flank pain, frequency, hematuria, incontinence, pain, , vagina discharge, urgency, others Neurological: denies: dizziness, fainting, headache, left sided numbness, left sided weakness, numbness, paresthesia, pre-existing deficit, right sided numbness, right sided weakness, seizure, speech problems, tingling, tremors, weakness, others Musculoskeletal: denies: back pain, gout, joint pain, joint swelling, muscle pain, muscle stiffness, neck pain, others Integumetry: denies: bruises, change in color, change in hair/nails, dryness, laceration, lesions, lumps, rash, wounds, others Allergic/Immunocompromised: denies: Difficulty Healing, Frequent Infections, Hives, Itching, others Hematologic/Lymphatic: denies: anemia, blood clots, easy bleeding, easy bruising, swollen glands, others Endocrine: denies: excessive hunger, excessive sweating, excessive thirst, excessive urination, flushing, intolerance to cold, intolerance to heat, unexplained weight gain, unexplained weight loss, others Psychiatric: denies: anxiety, bipolar disorder, depression, hopeless, panic disorder, schizophrenia, sleepless, suicidal, others Physical Exam General Appearance: Moderate Distress HEENT: Normal ENT Inspection, Pharynx Normal, TMs Normal Neck: Full Range of Motion, Non-Tender, Normal, Normal Inspection Respiratory: Respiratory Distress, Other (Coarse breath sounds) Cardiovascular: No Edema, No JVD, No Murmur, No Gallop, Normal Peripheral Pulses, Regular Rate/Rhythm Breast Exam: Deferred Gastrointestinal: No Organomegaly, Non Tender, No Pulsatile Mass, Normal Bowel Sounds, Soft Genitalia: Deferred Pelvic: Deferred Rectal: Deferred Extremities: Swelling (Bilateral lower extremity) Musculoskeletal : Apperance: Normal Neurologic: Alert, No Motor Deficits, No Sensory Deficits Cerebellar Function: Normal Reflexes: Normal Skin: Dry, Normal Color, Warm Peripheral Pulses: 3+ Radial (R), 3+ Radial (L) Lymphatic: No Adenopathy Was a procedure done? Was a procedure done?: No Differential Dx Considerations may include: CHF Electrolyte imbalance X-Ray, Labs, Meds, VS Vital Signs Date Time Temp Pulse Resp B/P (MAP) Pulse Ox O2 Delivery O2 Flow Rate FiO2 01/06/25 15:52 99 01/06/25 15:44 98.8 105 24 249/121 96 98.8 260/128 Lab Test 01/06/25 16:05 Range/Units White Blood Count 8.6 4.4-10.8 10^3/uL Red Blood Count 4.17 4.0-5.20 10^6/uL Hemoglobin 10.3 L 12.2-16.2 g/dL Hematocrit 32.0 L 36.0-46.0 % Mean Corpuscular Volume 76.8 L 80.0-100.0 fL Mean Corpuscular Hemoglobin 24.6 L 28.0-32.0 pg Mean Corpuscular Hemoglobin Concent 32.1 32.0-36.0 g/dL Red Cell Distribution Width 17.3 H 11.8-14.3 % Platelet Count 314 140-450 10^3/uL Mean Platelet Volume 7.6 6.9-10.8 fL Neutrophils (%) (Auto) 65.8 37.0-80.0 % Lymphocytes (%) (Auto) 17.7 10.0-50.0 % Monocytes (%) (Auto) 10.4 0.0-12.0 % Eosinophils (%) (Auto) 5.2 0.0-7.0 % Basophils (%) (Auto) 0.9 0.0-2.0 % Neutrophils # (Auto) 5.6 1.6-8.6 10 ^3/uL Lymphocytes # (Auto) 1.5 0.4-5.4 10 ^3/uL Monocytes # (Auto) 0.9 0-1.3 10 ^3/uL Eosinophils # (Auto) 0.4 0-0.8 10 ^3/uL Basophils # (Auto) 0.1 0-0.2 10 ^3/uL Nucleated Red Blood Cells 0.1 % Sodium Level Pending Potassium Level Pending Chloride Level Pending Carbon Dioxide Level Pending Anion Gap Pending Blood Urea Nitrogen Pending Creatinine Pending Glomerular Filtration Rate Calc Pending BUN/Creatinine Ratio Pending Serum Glucose Pending Calcium Level Pending Troponin I High Sensitivity Pending B-Type Natriuretic Peptide Pending [address] [address] Ph: [phone] DIAGNOSTIC IMAGING Diagnostic Imaging Report : [id number] Signed PATIENT: SEAN YOUNGBLOOD ACCT: [id number] UNIT: [id number] : 1990 LOC: ER ROOM / BED: / AGE / SEX: 34 / F ADM STATUS: REG ER SERVICE 1554 ORDERING PHYSICIAN: GERALD MTZ MD PROCEDURE(s): CXRP - CHEST PORTABLE REASON: sob ORDER NUMBER(s): [id number], ACCESSION NUMBER(s): [id number] EXAM: XY CHEST PORTABLE TECHNIQUE: Single frontal chest radiograph CLINICAL HISTORY: sob COMPARISON: XY CHEST TWO VIEWS ROUTINE on DOS: 05/01/24 Findings/Impression: Frontal chest radiograph demonstrates no acute osseous or superficial soft tissue abnormalities. The trachea is midline. Mild cardiomegaly with pulmonary vascular congestion. No pneumothorax, pleural effusions, or consolidations. Patient alert. Complaining of shortness a breath. Was given Lasix. Blood pressure elevated. Started nicardipine. Explained to the patient that she will need to be admitted for echocardiogram. Continue monitoring. Time of 1ST Reevaluation: 15:52 Reevaluation 1ST: Unchanged Patient Education/Counseling: Diagnosis, Treatment, Prognosis Family Education/Counseling: Need For Follow Up SEPSIS Sepsis Screen Date sepsis recognized/suspect: Jan 06, 2025 Time Sepsis recognized/suspect: 4 Recent Procedure: No On Antibiotic Therapy: No Respiratory Rate >20: Yes Heart Rate >90: Yes Temp<36 C (96.8 F) or >38.3 C: No SBP <90 or MAP <65 mmHG: No New Acute Mental Status Change: No Is the patient on CPAP, BIPAP,: No Physician Orders Troponin-I Hs (01/06/25 15:54) B-Type Natriuretic Peptide (01/06/25 15:54) Chest Portable (01/06/25 15:54) Urinalysis (01/06/25 15:54) Basic Metabolic Panel (01/06/25 15:54) Troponin-I Hs (01/06/25 16:54) Troponin-I Hs (01/06/25 18:54) Nicardipine Hcl In Sodium Chlo (Cardene (01/06/25 16:00) Electrocardigram (01/06/25 18:59) Electrocardigram (01/06/25 16:59) Vital Signs Date Time Temp Pulse Resp B/P (MAP) Pulse Ox O2 Delivery O2 Flow Rate FiO2 01/06/25 15:52 99 01/06/25 15:44 98.8 105 24 249/121 96 98.8 260/128 Laboratory Tests Test 01/06/25 16:05 White Blood Count 8.6 10^3/uL (4.4-10.8) Departure 1 Departure Time of Disposition: 15:53 Impression: Primary Impression: CHF (congestive heart failure) Qualified Codes: I50.43 - Acute on chronic combined systolic (congestive) and diastolic (congestive) heart failure Additional Impression: Hypertensive emergency Disposition: ADMITTED INPATIENT Admit to: Med Surg Condition: Guarded e-Prescriptions Unable to Obtain Active Prescriptions or Reported Meds Critical Care Note Critical Care Time?: Yes (90 min-critical care time only) Stability Stability form required: No Heart Score Heart Score: Heart Score Response (Comments) Value History Slightly Suspicious 0 EKG Normal 0 Age <45 0 Risk Factors 1 or 2 risk factors 1 Troponin Normal limit 0 Total 1 I personally scribed for GERALD MTZ MD ([email or web address]) on 01/06/25 at 16:34. Electronically submitted by Fabi Hunter ([email or web address]). GERALD MTZ MD Jan 06, 2025 15:54
--- NOTE | 2025-01-06 16:00 | ECG ---
[facility] Test Date: 2025-01-06 Test Time: 15:52:43 Pat Name: SEAN YOUNGBLOOD Department: ER Room: [address] [place] [address] Gender: F Top Executive: GEORGE : 1990 Requested By: GERALD MTZ Order Number: [id number] Reading MD: Nguyễn Norman Measurements Intervals [place] Rate: 99 P: 10 UT: 179 QRS: 34 QRSD: 108 T: 45 QT: 386 QTc: 496 Interpretive Statements Sinus rhythm Left atrial enlargement RSR' in V1 or V2, right VCD or RVH Borderline prolonged QT interval Electronically Signed On 01-08-2025 22:05:02 PDT by Nguyễn Norman Please click the below link to view image of tracing.
[2025-01-06 16:20] LABS: Hematocrit 32.0 % (36.0-46.0); Hemoglobin 10.3 g/dL (12.2-16.2); Mean Corpuscular Hemoglobin 24.6 pg (28.0-32.0); Mean Corpuscular Volume 76.8 fL (80.0-100.0); Nucleated Red Blood Cells % 0.1 %
--- NOTE | 2025-01-06 16:27 | DVH ---
EXAM: XY CHEST PORTABLE TECHNIQUE: Single frontal chest radiograph CLINICAL HISTORY: sob COMPARISON: XY CHEST TWO VIEWS ROUTINE on DOS: 05/01/24 Findings/Impression: Frontal chest radiograph demonstrates no acute osseous or superficial soft tissue abnormalities. The trachea is midline. Mild cardiomegaly with pulmonary vascular congestion. No pneumothorax, pleural effusions, or consolidations.
[2025-01-06 16:40] LABS: Chloride 102 mmol/L (98-107); Sodium 140 mmol/L (136-145)
[2025-01-06 16:41] LABS: Anion Gap 10 (5-15); Calcium 9.3 mg/dL (8.7-10.4); Carbon Dioxide 28 mmol/L (20-31)
[2025-01-06 16:45] VITALS: TEMP 99
[2025-01-06 16:46] LABS: BUN/Creatinine Ratio 11.5 (10.0-20.0); Blood Urea Nitrogen 26 mg/dL (9-23); Glucose 122 mg/dL (74-106); Potassium 3.4 mmol/L (3.5-5.1)
[2025-01-06] MEDS: NICARDIPINE HCL IN SODIUM CHLO 200 ML IV SCH (17:22)
[2025-01-06 17:50] LABS: Urine Protein, UAD 3+ (Negative)
[2025-01-06] MEDS: FUROSEMIDE 40 MG/4 ML VIAL IV ONE (18:01)
[2025-01-06] MEDS: LORazepam 2MG/ML-1ML VIAL IV ONE (18:02)
[2025-01-06] MEDS: LISINOPRIL 5 MG TAB PO ONE (18:02)
--- NOTE | 2025-01-06 18:57 | DVHHP2 ---
Admitting Diagnosis: Chest pain History of Present Illness 34-year-old female came to the ER stating that she has been having chest tightness shortness a breath since yesterday. History of hypertension CHF. Her blood pressure on arrival was 260/128. She does have leg swelling along with the shortness a breath. She does state that she has been taking her Lasix. Shortness a breath upon rest and ambulation. She is not on oxygen. Denies any other symptoms. 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 Allergies: Coded Allergies: NO KNOWN ALLERGIES (Unverified , 05/01/24) Home Meds Unable to Obtain Active Prescriptions or Reported Meds Current Medications Current Medications Medications (Trade) Dose Ordered Sig/Juan Route PRN Reason Start Time Stop Time Status Last Admin Nicardipine/ Sodium Chloride 200 ml @ 50 mls/hr Q4H IV 01/06/25 16:00 01/06/25 17:22 Furosemide (Lasix Injection) 40 mg BIDD IV 01/07/25 06:00 UNV Sodium Chloride (Saline Lock Ns) 10 ml Q8HR IV 01/06/25 22:00 UNV Docusate Sodium (Colace Capsule) 100 mg BIDPRN PRN PO FOR CONSTIPATION 01/06/25 19:00 UNV Acetaminophen (Tylenol Tablet) 650 mg Q6HP PRN PO PAIN SCALE 1-3 OR TEMP>100.4 01/06/25 19:00 UNV Acetaminophen/ Hydrocodone Bitart (Butler 5/325MG Tab) 1 tab Q4HP PRN PO MODERATE PAIN (4-6 PAIN SCALE) 01/06/25 19:00 UNV Ondansetron HCl (Zofran) 4 mg Q4HP PRN IV NAUSEA / VOMITING 01/06/25 19:00 UNV Enoxaparin Sodium (Lovenox) 40 mg DAILY SC 01/07/25 10:00 UNV Nitroglycerin (Ntrostat Sublingual) 0.4 mg Q5MINP PRN SL FOR CHEST PAIN 01/06/25 19:00 UNV Morphine Sulfate 2 mg Q30M PRN IV FOR CHEST PAIN 01/06/25 19:00 UNV Vital Signs Vital Signs Date Time Temp Pulse Resp B/P (MAP) Pulse Ox O2 Delivery O2 Flow Rate FiO2 01/06/25 18:42 117 22 193/91 (125) 97 01/06/25 16:45 99.0 99.0 Physical Exam 34 years old woman morbidly obese, sitting on bed. No apparent distress HEENT-atraumatic normocephalic Heart-regular rate and rhythm Lungs shortness of breaths body habitus Abdomen soft nontender nondistended Musculoskeletal-last two pitting edema Neuro-AO x3, no focal deficits SEPSIS Sepsis Screen Date sepsis recognized/suspect: Jan 06, 2025 Time Sepsis recognized/suspect: 1543 Recent Procedure: No On Antibiotic Therapy: No Respiratory Rate >20: Yes Heart Rate >90: Yes Temp<36 C (96.8 F) or >38.3 C: No SBP <90 or MAP <65 mmHG: No New Acute Mental Status Change: No Is the patient on CPAP, BIPAP,: No Physician Orders Chest Portable (01/06/25 15:54) Troponin-I Hs (01/06/25 18:54) Nicardipine Hcl In Sodium Chlo (Cardene (01/06/25 16:00) Electrocardigram (01/06/25 18:59) Electrocardigram (01/06/25 16:59) Furosemide Injection (Lasix Injection) (01/07/25 06:00) Maintain Fluid Restrictions QSHIFT (01/06/25 18:50) Strict I & O QSHIFT (01/06/25 18:50) Echo 2d Mode Cardiac Dop (01/06/25 18:50) Cardiac Diet-2gna,Lofat,Lochol (01/07/25 Breakfast) Admit (01/06/25 18:50) Code Status (01/06/25 18:50) Vital Signs .PER UNIT PROTOCOL (01/06/25 18:50) Review Orders With Adm.Md (01/06/25 18:50) Encourage Activity As Tolerate (01/06/25 18:50) Sodium Chloride Lock (Saline Lock Ns) (01/06/25 22:00) Docusate Sodium Capsule (Colace Capsule) (01/06/25 19:00) Acetaminophen Tablet (Tylenol Tablet) (01/06/25 19:00) Notify Md Of Changes From Base (01/06/25 18:50) Advance Directive (01/06/25 18:50) Patient Condition (01/06/25 18:50) Allergies (01/06/25 18:50) Hydrocodone-Acet 5/325mg Tab (Butler 5/32 (01/06/25 19:00) Ondansetron Hcl (Zofran) (01/06/25 19:00) Enoxaparin Sodium (Lovenox) (01/07/25 10:00) Nitroglycerin Sublingual (Ntrostat Subli (01/06/25 19:00) Morphine Sulfate Injection (01/06/25 19:00) Stat Ekg For Chest Pain (01/06/25 18:50) Notify Md Of Changes From Base (01/06/25 18:50) Certified Histologic Technician For 24 Hours (01/06/25 18:50) Emergency Dysrhythmia Protocol (01/06/25 18:50) Rhythm Strips Once Every Shift (01/06/25 18:50) Oxygen By Nasal Cannula (01/06/25 18:50) * Cardiology Consult (01/06/25 18:50) *[facility] (01/06/25 18:50) Daily Weight (01/06/25 18:50) Comprehensive Metabolic Panel (01/07/25 05:00) Comprehensive Metabolic Panel (01/08/25 05:00) Comprehensive Metabolic Panel (01/09/25 05:00) Comprehensive Metabolic Panel (01/10/25 05:00) Comprehensive Metabolic Panel (01/11/25 05:00) Complete Blood Count (01/07/25 05:00) Complete Blood Count (01/08/25 05:00) Complete Blood Count (01/09/25 05:00) Complete Blood Count (01/10/25 05:00) Complete Blood Count (01/11/25 05:00) Magnesium (01/07/25 05:00) Magnesium (01/08/25 05:00) Magnesium (01/09/25 05:00) Magnesium (01/10/25 05:00) Magnesium (01/11/25 05:00) Vital Signs Date Time Temp Pulse Resp B/P (MAP) Pulse Ox O2 Delivery O2 Flow Rate FiO2 01/06/25 18:42 117 22 193/91 (125) 97 8/2/25 18:15 161/102 01/06/25 18:10 177/104 01/06/25 18:05 164/85 01/06/25 18:02 164/85 01/06/25 18:01 164/85 01/06/25 17:55 202/103 01/06/25 17:32 273/124 01/06/25 17:27 252/129 01/06/25 17:22 266/153 01/06/25 16:45 99.0 102 22 276/152 (193) 95 99.0 01/06/25 16:37 98 01/06/25 15:52 99 01/06/25 15:44 98.8 105 24 249/121 96 98.8 260/128 Laboratory Tests Test 01/06/25 16:05 White Blood Count 8.6 10^3/uL (4.4-10.8) Medications Medications Dose Ordered Sig/Juan Route Start Time Stop Time Status Last Admin Dose Admin Furosemide 40 mg ONCE ONCE IV 01/06/25 16:00 01/06/25 16:01 DC 01/06/25 18:01 Lisinopril 10 mg ONCE ONCE PO 01/06/25 15:55 01/06/25 15:57 DC 01/06/25 18:02 Lorazepam 1 mg ONCE ONCE IV 01/06/25 17:47 01/06/25 17:48 DC 01/06/25 18:02 Nicardipine/ Sodium Chloride 200 ml @ 50 mls/hr Q4H IV 01/06/25 16:00 01/06/25 17:22 Results Labs Test 01/06/25 17:15 01/06/25 17:05 01/06/25 16:05 Range/Units Troponin I High Sensitivity 35 *H </=34 ng/L Urine Color Light-yellow Yellow Urine Clarity Clear Clear Urine pH 6.0 5.0-9.0 Urine Specific [place] 1.021 1.001-1.035 Urine Protein 3+ H Negative Urine Ketones Negative Negative Urine Blood Trace H Negative /uL Urine Nitrite Negative Negative Urine Bilirubin Negative Negative Urine Urobilinogen Normal Negative mg/dL Urine Leukocyte Esterase Negative Negative /uL Urine RBC 2 0 - 4 /hpf Urine Microscopic WBC 2 0-5 /HPF Urine Squamous Epithelial Cells Few <5 /hpf Urine Bacteria None seen None Seen /hpf Urine Glucose 1+ H Normal mg/dL White Blood Count 8.6 4.4-10.8 10^3/uL Red Blood Count 4.17 4.0-5.20 10^6/uL Hemoglobin 10.3 L 12.2-16.2 g/dL Hematocrit 32.0 L 36.0-46.0 % Mean Corpuscular Volume 76.8 L 80.0-100.0 fL Mean Corpuscular Hemoglobin 24.6 L 28.0-32.0 pg Mean Corpuscular Hemoglobin Concent 32.1 32.0-36.0 g/dL Red Cell Distribution Width 17.3 H 11.8-14.3 % Platelet Count 314 140-450 10^3/uL Mean Platelet Volume 7.6 6.9-10.8 fL Neutrophils (%) (Auto) 65.8 37.0-80.0 % Lymphocytes (%) (Auto) 17.7 10.0-50.0 % Monocytes (%) (Auto) 10.4 0.0-12.0 % Eosinophils (%) (Auto) 5.2 0.0-7.0 % Basophils (%) (Auto) 0.9 0.0-2.0 % Neutrophils # (Auto) 5.6 1.6-8.6 10 ^3/uL Lymphocytes # (Auto) 1.5 0.4-5.4 10 ^3/uL Monocytes # (Auto) 0.9 0-1.3 10 ^3/uL Eosinophils # (Auto) 0.4 0-0.8 10 ^3/uL Basophils # (Auto) 0.1 0-0.2 10 ^3/uL Nucleated Red Blood Cells 0.1 % Sodium Level 140 136-145 mmol/L Potassium Level 3.4 L 3.5-5.1 mmol/L Chloride Level 102 98-107 mmol/L Carbon Dioxide Level 28 20-31 mmol/L Anion Gap 10 5-15 Blood Urea Nitrogen 26 H 9-23 mg/dL Creatinine 2.27 H 0.550-1.02 mg/dL Glomerular Filtration Rate Calc 28 >90 mL/min BUN/Creatinine Ratio 11.5 10.0-20.0 Serum Glucose 122 H 74-106 mg/dL Calcium Level 9.3 8.7-10.4 mg/dL B-Type Natriuretic Peptide 98.10 0-100 pg/mL Primary Diagnosis Chest pain rule out ACS Elevated troponin CHF exacerbation JEREMI on CKD Hypertensive emergency Plan Elevated troponin, SBP over 220 Starting cardiogram rate and rhythm hypertensive emergency Check echo of the heart Daily weight fluid restriction Strict in and out Patient does not recall the medication. will bring the medication later today Home BP meds Monitor chest pain Heparin for DVT prophylaxis No GI prophylaxis needed Cardiac diet Plan discussed with: Patient Problems List: (1) Hypertensive emergency Status: Acute (2) CHF (congestive heart failure) Status: Acute Date of Service: Jan 06, 2025 Billing Provider: ALFONSO ALVAREZ MD Common Visit Codes: [id number] CARE 30-74 MIN ALFONSO ALVAREZ MD Jan 06, 2025 18:57
[2025-01-06] MEDS ORDERED: ACETAMINOPHEN 325 MG TAB PO PRN (19:00)
[2025-01-06] MEDS ORDERED: HYDROcodone-ACET 5/325MG TAB PO PRN (19:00)
[2025-01-06] MEDS ORDERED: ONDANSETRON HCL 4 MG/2 ML VIAL IV PRN (19:00)
[2025-01-06] MEDS ORDERED: DOCUSATE SOD 100 MG CAP PO PRN (19:00)
[2025-01-06] MEDS ORDERED: NITROGLYCERIN 0.4 MG SL TAB SL PRN (19:00)
[2025-01-06 19:30] VITALS: O2SAT 98
[2025-01-06 19:37] VITALS: BP 156/85; PULSE 120; RESP 31
[2025-01-06] MEDS: MORPHINE SULFATE INJ 2 MG/ml SYRG IV PRN (19:37)
[2025-01-06] MEDS ORDERED: SODIUM CHLOR 0.9% PF (SALINE LOCK) 10ML VIAL/SYR IV SCH (22:00)
[2025-01-07] MEDS ORDERED: FUROSEMIDE 40 MG/4 ML VIAL IV SCH (06:00)
[2025-01-07] MEDS ORDERED: ENOXAPARIN SOD 40 MG/0.4 ML SYRINGE SC SCH (10:00)
== END 2025-01-06 19:58 | disposition left against medical advice (07) | DRG 198 ==
LOC: ER 15:43 → OVERFLOW 18:50
PROVIDERS: ADMIT Internal Medicine; ATTEND Internal Medicine
DX: I24.9 Acute ischemic heart disease, unspecified (principal); I50.43 Acute on chronic combined systolic (congestive) and diastolic (congestive) heart failure; N17.9 Acute kidney failure, unspecified; I13.0 Hypertensive heart and chronic kidney disease with heart failure and stage 1 through stage 4 chronic kidney disease, or unspecified chronic kidney disease; Z53.29 Procedure and treatment not carried out because of patient's decision for other reasons; I16.1 Hypertensive emergency; N18.9 Chronic kidney disease, unspecified; Z79.899 Other long term (current) drug therapy
CPT/HCPCS: 36415; 71045; 80048; 81001; 83880; 84484; 85025; 93005; 96365; 96366; 96375; 99291; 99292; G0378